=== PATIENT | male | born 1945 | race Asian ===

== ENCOUNTER 2017-01-06 09:37 | Inpatient (IN) | payer OTHER ==
[2017-01-06] MEDS ORDERED: HYDROmorphone 1 MG/ML 1 ML SYRINGE IVP STA (09:52)
[2017-01-06] MEDS ORDERED: SODIUM CHLORIDE 0.9% 1,000 ML IV STA (09:52)
[2017-01-06 10:31] LABS: Basophils # (A) 0.1 k/uL (0-0.2); Basophils % (A) 0 %; CH 29.8; CHCM 34.9; Eosinophils # (A) 0.1 k/uL (0-0.7); Eosinophils % (A) 0 %; HCT 47.5 % (39.0-53.0); HDW 3.06; HGB 16.1 gm/dL (13.0-17.5); Luc # (Auto) 0.06; Luc % (Auto) 0; Lymphocytes % (A) 8 %; MCH 29.1 pg (25.0-35.0); MCHC 33.9 g/dL (31.0-37.0); MCV 85.9 fL (80.0-100.0); Monocytes # (A) 0.6 k/uL (0-1.0); Monocytes % (A) 5 %; Neutrophils # (A) 10.9 k/uL (1.3-7.7); Neutrophils % (A) 87 %; RBC 5.53 m/uL (4.30-5.90); RDW 12.8 % (11.5-15.5); WBC 12.6 k/uL (3.8-10.6); WBC (Perox) 12.66
[2017-01-06 10:39] LABS: INR 1.2 (<1.1); Partial Thromboplastin Time 23.1 sec (22.0-30.0); Prothrombin Time 11.7 sec (9.0-12.0)
[2017-01-06 10:50] LABS: ALT 33 U/L (21-72); AST 28 U/L (17-59); Alkaline Phosphatase 77 U/L (38-126); Anion Gap 10 mmol/L; Blood Urea Nitrogen 14 mg/dL (9-20); Calcium 9.3 mg/dL (8.4-10.2); Carbon Dioxide 23 mmol/L (22-30); Chloride 104 mmol/L (98-107); Glucose 202 mg/dL (74-99); Magnesium 1.9 mg/dL (1.6-2.3); Non-African American GFR(MDRD) 54 (>60 ml/min/1.73 sqM); Potassium 4.4 mmol/L (3.5-5.1); Sodium 137 mmol/L (137-145); Total Bilirubin 0.9 mg/dL (0.2-1.3); Total Protein 7.7 g/dL (6.3-8.2)
[2017-01-06 11:01] LABS: Creatine Kinase 250 U/L (55-170)
--- NOTE | 2017-01-06 11:04 | XR ---
EXAMINATION TYPE: XR Hip Bilateral and AP pelvis DATE OF EXAM: 01/06/2017 10:54 AM COMPARISON: NONE HISTORY: Fall injury with pelvic and left hip pain. TECHNIQUE: A single AP view of the pelvis is obtained. Two views of the left hip are obtained. FINDINGS: There is acute subcapital fracture through the left proximal femur with slight impaction a nd superior displacement of distal fracture fragment. Moderate axial joint space loss in both hip amber nts is present. No hip joint dislocation is seen. No right hip fracture or dislocation is evident. Remainder of pelvis shows no additional acute fracture or dislocation. Sacroiliac joints are maintain ed. Overlying soft tissue is unremarkable. IMPRESSION: There is acute slightly displaced subcapital fracture of left proximal femur.
--- NOTE | 2017-01-06 11:05 | XR ---
EXAMINATION TYPE: XR hand complete LT DATE OF EXAM: 01/06/2017 10:53 AM CLINICAL HISTORY: Left hand pain after fall injury TECHNIQUE: Frontal, lateral and oblique images of the left hand are obtained. COMPARISON: None. FINDINGS: Osseous structures are somewhat demineralized. There is no acute fracture/dislocation evide nt in the left hand. Mild spurring first interphalangeal joint is noted. There is more prominent join t space loss with marginal spurring and joint space sclerosis at base of first metacarpal. Peripheral IV overlies the dorsum of the left wrist. IMPRESSION: There is no acute fracture or dislocation in the left hand.
--- NOTE | 2017-01-06 11:07 | XR ---
EXAMINATION TYPE: XR chest 1V DATE OF EXAM: 01/06/2017 10:54 AM COMPARISON: NONE HISTORY: Chest pain after fall injury. TECHNIQUE: Single frontal supine view of the chest is obtained. FINDINGS: Exam is suboptimal as there is rotation to the right. Cardiac silhouette size is mildly pro minent with ectatic thoracic aorta may be exaggerated by rotation. Some increased masslike opacity ri ght upper lung is present. No pleural effusion or pneumothorax is seen. Osseous structures are intact . IMPRESSION: Suboptimal study, there is mild cardiomegaly with right upper lung masslike opacity cou ld reflect infiltrate and/or atelectasis, follow-up with two-view chest x-ray or CT correlation shoul d be considered as underlying mass needs to BE excluded.
[2017-01-06 11:13] LABS: Troponin I <0.012 ng/mL (0.000-0.034)
[2017-01-06 11:25] LABS: Creatine Kinase MB 2.5 ng/mL (0.0-2.4)
[2017-01-06] MEDS ORDERED: SODIUM CHLORIDE 0.9% 1,000 ML IV ONE (12:14)
--- NOTE | 2017-01-06 12:14 | ED ---
Fall HPI - General Chief Complaint: Fall Stated Complaint: fall, hip injury Time Seen by Provider: 01/06/17 09:42 Source: patient Mode of arrival: EMS - History of Present Illness Initial Comments: He fell today at 7:30 AM and had his left hip no complaining about pain with movement he denies any head injury no neck injury he also injured his left hand while trying to break the fall and he is able to move his left foot. He denies any medical history hasn't seen a physician for quite a long time he denies any head injury no neck injury no chest pain or shortness of breath no abdominal pain no frequency urgency dysuria - Related Data Home Medications Medication Instructions Recorded Confirmed No Known Home Medications [No 01/06/17 01/06/17 Known Home Medications] Allergies Allergy/AdvReac Type Severity Reaction Status Date / Time No Known Allergies Allergy Verified 01/06/17 10:17 Review of Systems ROS Statement: Those systems with pertinent positive or pertinent negative responses have been documented in the HPI. ROS Other: All systems not noted in ROS Statement are negative. Past Medical History Past Medical History: No Reported History History of Any Multi-Drug Resistant Organisms: None Reported Past Surgical History: No Surgical Hx Reported Past Psychological History: No Psychological Hx Reported Smoking Status: Never smoker Past Alcohol Use History: None Reported Past Drug Use History: None Reported General Exam - General Exam Comments Initial Comments: General: The patient is awake and alert, in no distress, and does not appear acutely ill. Skin: Skin is warm and dry and no rashes or lesions are noted. Eye: Pupils are equal, round and reactive to light, extra-ocular movements are intact; there is normal conjunctiva bilaterally. Ears, nose, mouth and throat: There are moist mucous membranes and no oral lesions. Neck: The neck is supple, there is no tenderness or JVD. Cardiovascular: There is a regular rate and rhythm. No murmur, rub or gallop is appreciated. Respiratory: To auscultation bilateral, crease breath sounds bilaterally Gastrointestinal: Soft, non-distended, non-tender abdomen without masses or organomegaly noted. There is no rebound or guarding present. Bowel sounds are unremarkable. Back: There is no tenderness to palpation in the midline. There is no obvious deformity. Musculoskeletal: Left lower extremity is externally rotated left lower extremities which short her but no neurovascular compromise noticed a cyst point Neurological: CN II-XII intact, Cranial nerves III through XII are intact. There are no obvious motor or sensory deficits. Coordination appears grossly intact. Speech is normal. Psychiatric: Cooperative, appropriate mood & affect, normal judgment. Limitations: no limitations Course Vital Signs 01/06/17 01/06/17 09:57 11:24 Temperature 97.4 F L Pulse Rate 84 74 Respiratory 18 16 Rate Blood Pressure 212/108 163/84 O2 Sat by Pulse 95 94 L Oximetry EKG shows normal sinus rhythm ventricular rate is 68 MA interval is 140 QRS duration is 1 of 4 QT/QTc is 392/416 review of this EKG shows mild ST depression in lead 2 and some flattening of the T-wave in lead aVF and V5 and V6 no ST elevation noticed in this EKG Medical Decision Making - Lab Data Result diagrams: 01/06/17 10:10 01/06/17 10:10 Lab Results 01/06/17 01/06/17 01/06/17 Range/Units 10:10 10:10 10:10 WBC 12.6 H (3.8-10.6) k/uL RBC 5.53 (4.30-5.90) m/uL Hgb 16.1 (13.0-17.5) gm/dL Hct 47.5 (39.0-53.0) % MCV 85.9 (80.0-100.0) fL MCH 29.1 (25.0-35.0) pg MCHC 33.9 (31.0-37.0) g/dL RDW 12.8 (11.5-15.5) % Plt Count 189 (150-450) k/uL Neutrophils % 87 % Lymphocytes % 8 % Monocytes % 5 % Eosinophils % 0 % Basophils % 0 % Neutrophils # 10.9 H (1.3-7.7) k/uL Lymphocytes # 1.0 (1.0-4.8) k/uL Monocytes # 0.6 (0-1.0) k/uL Eosinophils # 0.1 (0-0.7) k/uL Basophils # 0.1 (0-0.2) k/uL PT (9.0-12.0) sec INR (<1.1) APTT (22.0-30.0) sec Sodium 137 (137-145) mmol/L Potassium 4.4 (3.5-5.1) mmol/L Chloride 104 (98-107) mmol/L Carbon Dioxide 23 (22-30) mmol/L Anion Gap 10 mmol/L BUN 14 (9-20) mg/dL Creatinine 1.31 H (0.66-1.25) mg/dL Est GFR (MDRD) Af Amer >60 (>60 ml/min/1.73 sqM) Est GFR (MDRD) Non-Af 54 (>60 ml/min/1.73 sqM) Glucose 202 H (74-99) mg/dL Calcium 9.3 (8.4-10.2) mg/dL Magnesium 1.9 (1.6-2.3) mg/dL Total Bilirubin 0.9 (0.2-1.3) mg/dL AST 28 (17-59) U/L ALT 33 (21-72) U/L Alkaline Phosphatase 77 (38-126) U/L Total Creatine Kinase 250 H (55-170) U/L CK-MB (CK-2) 2.5 H* (0.0-2.4) ng/mL CK-MB (CK-2) Rel Index 1.0 Troponin I <0.012 (0.000-0.034) ng/mL Total Protein 7.7 (6.3-8.2) g/dL Albumin 4.2 (3.5-5.0) g/dL 01/06/17 Range/Units 10:10 WBC (3.8-10.6) k/uL RBC (4.30-5.90) m/uL Hgb (13.0-17.5) gm/dL Hct (39.0-53.0) % MCV (80.0-100.0) fL MCH (25.0-35.0) pg MCHC (31.0-37.0) g/dL RDW (11.5-15.5) % Plt Count (150-450) k/uL Neutrophils % % Lymphocytes % % Monocytes % % Eosinophils % % Basophils % % Neutrophils # (1.3-7.7) k/uL Lymphocytes # (1.0-4.8) k/uL Monocytes # (0-1.0) k/uL Eosinophils # (0-0.7) k/uL Basophils # (0-0.2) k/uL PT 11.7 (9.0-12.0) sec INR 1.2 (<1.1) APTT 23.1 (22.0-30.0) sec Sodium (137-145) mmol/L Potassium (3.5-5.1) mmol/L Chloride (98-107) mmol/L Carbon Dioxide (22-30) mmol/L Anion Gap mmol/L BUN (9-20) mg/dL Creatinine (0.66-1.25) mg/dL Est GFR (MDRD) Af Amer (>60 ml/min/1.73 sqM) Est GFR (MDRD) Non-Af (>60 ml/min/1.73 sqM) Glucose (74-99) mg/dL Calcium (8.4-10.2) mg/dL Magnesium (1.6-2.3) mg/dL Total Bilirubin (0.2-1.3) mg/dL AST (17-59) U/L ALT (21-72) U/L Alkaline Phosphatase (38-126) U/L Total Creatine Kinase (55-170) U/L CK-MB (CK-2) (0.0-2.4) ng/mL CK-MB (CK-2) Rel Index Troponin I (0.000-0.034) ng/mL Total Protein (6.3-8.2) g/dL Albumin (3.5-5.0) g/dL Critical Care Time Total Critical Care Time: 35 Critical Care Time: An EKG in his blood pressure was quite a visor to 12 systolic though he does not have any diagnosis of hypertension I think is undiagnosed hypertension though the pain medication did the check for now he didn't require any antihypertensive therapy since he hasn't seen any physician for long time complete workup was done his white count is slightly elevated INR is fine creatinine is 1.31 glucose is 22 consistent with a glucose intolerance troponin is negative and x-ray was negative and chest x-ray which is lung mass infiltrate or atelectasis Disposition Clinical Impression: Hypertension, Closed left hip fracture, Lung mass Disposition: ADMITTED IP TO THIS HOSP
[2017-01-06] MEDS: HYDROmorphone 1 MG/ML 1 ML SYRINGE IVP PRN ×5 (12:56→20:45)
--- NOTE | 2017-01-06 18:09 | P.CNOR ---
History of Present Illness - [facility] Consult date: 01/06/17 Consult reason: fracture History of present illness: The patient is a very pleasant 71-year-old male who is admitted to internal medicine with a displaced left femoral neck fracture. The patient reports no medical problems but states that he has never seen a doctor in his life. He is very active and states that he walks 2-3 miles a day. 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 This morning he was walking when he lost his balance and fell on the left side. He denies any pre-existing hip pain. He was brought to the emergency department where x-rays showed a displaced femoral neck fracture. Due to his lack of prior medical care, hypertension and the ER, and lab work he was admitted to internal medicine. Orthopedics has been consult did for hip fracture. At the time of my evaluation he is complaining of isolated pain in his left hip. He denies any pre-existing hip pain. At his baseline he denies using assistive device to ambulate and says he walks 2-3 miles a day. He denies smoking but does chew tobacco. Past Medical History Past Medical History: No Reported History History of Any Multi-Drug Resistant Organisms: None Reported Past Surgical History: No Surgical Hx Reported Additional Past Anesthesia/Blood Transfusion Reaction / Comm: Pt has never had anesthesia Past Psychological History: No Psychological Hx Reported Additional Psychological History / Comment(s): Pt resides alone. He has a spouse of 48 yrs. She comes and visits him regularly. He does not drive. He uses the bus to get places and family makes sure he has what he needs. Pt is a vegetarian. He walks 3-4 miles a day and does yoga on a daily basis. Smoking Status: Never smoker Past Alcohol Use History: None Reported Additional Past Alcohol Use History / Comment(s): Pt chews tobacco. He has chewed since 1966. Past Drug Use History: None Reported - Past Family History Mother Family Medical History: No Reported History Additional Family Medical History / Comment(s): Mother lived to be 96yrs old Father Family Medical History: No Reported History Additional Family Medical History / Comment(s): Father lived to be in his late 70's. Medications and Allergies Home Medications Medication Instructions Recorded Confirmed Type No Known Home Medications [No 01/06/17 01/06/17 History Known Home Medications] Allergies Allergy/AdvReac Type Severity Reaction Status Date / Time No Known Allergies Allergy Verified 01/06/17 10:17 Physical Examination On exam the patient is in no apparent distress and is alert and oriented. His head is normocephalic and atraumatic. He has no cervical tenderness. He demonstrates nonlabored breathing with symmetric chest expansion. His abdomen is nonobese. He has no obvious deformities in his upper extremities. His upper extremities are nontender to palpation. On examination of his lower extremities his left leg is shortened and externally rotated. He has no tenderness throughout his right leg. He has pain with any attempted motion of his left hip. His thigh and calf are soft. He has no tenderness over his knee or ankle. He has a palpable dorsalis pedis pulse. His left foot is warm and well perfused with brisk capillary refill. Sensation is intact to light touch throughout his left foot. He can actively plantarflex and dorsiflex his ankle and his toes. Results X-rays of the left hip show displaced femoral neck fracture - Labs Result Diagrams: 01/06/17 10:10 01/06/17 10:10 Assessment and Plan (1) Closed left hip fracture Status: Acute Plan: Patient has a displaced left femoral neck fracture which will require surgery with either hemiarthroplasty or total hip replacement. We'll plan on surgery tomorrow once he is cleared by internal medicine. In the interim he is to remain on bedrest with strict nonweightbearing of his left lower extremity.
[2017-01-06 18:30] LABS: Amorphous Sediment,Urine Rare /hpf; Appearance,Urine Clear (Clear); Bilirubin,Urine Negative (Negative); Glucose,Urine (UA) 4+ (Negative); Ketones,Urine Trace (Negative); Leukocyte Esterase,Urine Negative (Negative); Mucus,Urine Rare /hpf; Nitrite,Urine Negative (Negative); Particle Count 618; Protein,Urine Trace (Negative); RBC,Urine 1 /hpf (0-5); UA Billing (MACRO vs. MICRO) MICRO; Urobilinogen,Urine <2.0 mg/dL (<2.0); WBC,Urine 4 /hpf (0-5)
[2017-01-06 19:40] LABS: Hemoglobin A1C 7.9 % (4.2-6.1)
[2017-01-06] MEDS: METOPROLOL TARTRATE 25 MG TAB PO SCH (19:56)
--- NOTE | 2017-01-06 19:58 | XR ---
EXAMINATION TYPE: XR chest 1V DATE OF EXAM: 01/06/2017 7:14 PM COMPARISON: January 16, 2017 at 10:41 AM HISTORY: Possible right upper lung mass TECHNIQUE: Single supine frontal view of the chest is obtained. FINDINGS: There is no focal air space opacity, pleural effusion, or pneumothorax seen. The cardiac silhouette size is within normal limits. The osseous structures are intact. IMPRESSION: No definite acute process, single supine radiographic examination.
[2017-01-06 19:59] LABS: Anion Gap 13 mmol/L; Blood Urea Nitrogen 15 mg/dL (9-20); Calcium 9.2 mg/dL (8.4-10.2); Carbon Dioxide 25 mmol/L (22-30); Chloride 100 mmol/L (98-107); Glucose 201 mg/dL (74-99); Non-African American GFR(MDRD) 50 (>60 ml/min/1.73 sqM); Potassium 4.8 mmol/L (3.5-5.1); Sodium 138 mmol/L (137-145)
--- NOTE | 2017-01-06 21:52 | XR ---
EXAMINATION TYPE: XR femur LT DATE OF EXAM: 01/06/2017 9:06 PM COMPARISON: January 06, 2017 10:30AM HISTORY: Left subcapital fracture, assess left femur TECHNIQUE: 5 views, including crosstable lateral technique FINDINGS: Imaging was obtained from the hip to the knee. The left subcapital fracture is redemonstrat ed without interval change. The remainder of the femur is intact. No incidental findings. IMPRESSION: Left femur examination.
[2017-01-07] MEDS: ENALAPRILAT 1.25 MG/ML 1 ML VIAL IVP PRN ×2 (01:03→04:54)
[2017-01-07] MEDS: HYDROmorphone 1 MG/ML 1 ML SYRINGE IVP PRN ×4 (02:31→19:48)
[2017-01-07 07:32] LABS: ALT 31 U/L (21-72); AST 27 U/L (17-59); Alkaline Phosphatase 69 U/L (38-126); Anion Gap 10 mmol/L; Blood Urea Nitrogen 17 mg/dL (9-20); Calcium 9.1 mg/dL (8.4-10.2); Carbon Dioxide 27 mmol/L (22-30); Chloride 101 mmol/L (98-107); Glucose 198 mg/dL (74-99); Non-African American GFR(MDRD) 52 (>60 ml/min/1.73 sqM); Potassium 4.9 mmol/L (3.5-5.1); Sodium 138 mmol/L (137-145); Total Bilirubin 1.5 mg/dL (0.2-1.3); Total Protein 7.3 g/dL (6.3-8.2)
[2017-01-07 08:11] LABS: Basophils % (A) 0 %; CH 29.6; CHCM 33.5; Eosinophils # (A) 0.2 k/uL (0-0.7); Eosinophils % (A) 1 %; HCT 47.2 % (39.0-53.0); HDW 2.54; HGB 15.5 gm/dL (13.0-17.5); Luc # (Auto) 0.09; Luc % (Auto) 1; Lymphocytes # (A) 1.4 k/uL (1.0-4.8); Lymphocytes % (A) 12 %; MCH 29.1 pg (25.0-35.0); MCHC 32.8 g/dL (31.0-37.0); MCV 88.8 fL (80.0-100.0); Mean Platelet Volume 7.7; Monocytes # (A) 0.7 k/uL (0-1.0); Monocytes % (A) 6 %; Neutrophils # (A) 9.7 k/uL (1.3-7.7); Neutrophils % (A) 80 %; RBC 5.31 m/uL (4.30-5.90); RDW 12.8 % (11.5-15.5); WBC 12.1 k/uL (3.8-10.6); WBC (Perox) 12.15
--- NOTE | 2017-01-07 08:21 | HP ---
DATE OF ADMISSION: 01/06/2017 SUBJECTIVE: This 71-year-old [place]orean male who presented with a left hip fracture. HISTORY OF PRESENT ILLNESS: This is a 71-year-old male with a left hip fracture admitted medical care and hip surgery. He does not take any medicines at home. He was found to have hypertension accelerations since he has been in the hospital and has renal insufficiency. He has not been treated for any of this in the past. He is having no chest pain or shortness of breath. His allergies are negative. REVIEW OF SYSTEMS: Negative except for as mentioned in the HPI. Fourteen point review of systems negative. PAST MEDICAL HISTORY: Negative. SURGERIES: Negative. SMOKING: Negative. He chews tobacco for many, many years, but no smoking. No alcohol. No illicit drugs. 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 PHYSICAL EXAM: He is a thin, cachectic [place] man. PSYCH: Giving appropriate answers. NEUROLOGIC: Alert and oriented x3. CARDIOVASCULAR: Regular rate and rhythm. LUNGS: Are clear. GI: Soft. HEMATOLOGIC: Negative Homans. PSYCHIATRIC: Fair mood and affect. NEUROLOGIC: Alert and oriented x3. Temperature 97.4, pulse 74 to 84, respirations 16 to 18, blood pressure 212/108 in the ER 163/84, O2 of 94% to 95% on room air. White count is 12.6. BUN 14, creatinine 1.31. Sodium 137, potassium 4.4. Negative troponin. Elevated creatine kinase secondary to mild rhabdomyolysis. EKG was reviewed. Chest x-ray did show a mass in the right upper lobe for which a second chest x-ray will be ordered and possibly a CAT scan if his creatinine comes down with IV hydration. He should be cleared for surgery ( ) as he needs his hip fixed. Hypertension acceleration will be treated with a beta stephy. Probable lung cancer or unclear etiology. Left hip fracture. Please see further orders.
[2017-01-07] MEDS: METOPROLOL TARTRATE 25 MG TAB PO SCH ×2 (10:29→19:54)
[2017-01-07] MEDS ORDERED: IV FLUID CONTINUATION 700 ML IV ONE (11:26)
[2017-01-07] MEDS ORDERED: ceFAZolin 2 GM in SODIUM CHLORIDE 0.9% 100 ML IVPB ONE (12:21)
[2017-01-07] MEDS ORDERED: ePHEDrine 50 MG/ML 1 ML AMP ONE (12:42)
[2017-01-07] MEDS ORDERED: fentaNYL (PF) 50 MCG/ML 2 ML AMP ONE (12:42)
[2017-01-07] MEDS ORDERED: KETAMINE 10 MG/ML 20 ML VIAL ONE (12:42)
[2017-01-07] MEDS ORDERED: ceFAZolin 3,000 MG in SODIUM CHLORIDE 0.9% IRRIGATIO 3,000 ML IRRIGATION ONE (12:42)
[2017-01-07] MEDS ORDERED: MIDAZOLAM 2 MG/2 ML VIAL ONE (12:42)
[2017-01-07] MEDS ORDERED: LACTATED RINGERS 1,000 ML IV ONE (14:27)
[2017-01-07] MEDS ORDERED: NALOXONE 0.4 MG/ML 1 ML VIAL IV PRN (14:39)
[2017-01-07] MEDS ORDERED: MAGNESIUM HYDROXIDE 2,400 MG/10 ML CUP PO PRN (14:39)
[2017-01-07] MEDS ORDERED: ONDANSETRON 4 MG/2 ML VIAL IVP PRN (14:39)
[2017-01-07] MEDS ORDERED: ACETAMINOPHEN TAB 325 MG TAB PO PRN (14:39)
[2017-01-07] MEDS ORDERED: HYDROmorphone 1 MG/ML 1 ML SYRINGE IVP PRN ×2 (14:39)
[2017-01-07] MEDS ORDERED: TEMAZEPAM 15 MG CAP PO PRN (14:39)
[2017-01-07] MEDS ORDERED: hydrOXYzine PAMOATE 25 MG CAP PO PRN (14:39)
[2017-01-07] MEDS ORDERED: HYDROcodone/APAP 5-325MG 1 EACH TAB PO PRN (14:39)
--- NOTE | 2017-01-07 14:51 | P.OP ---
Date of Procedure: 01/07/17 Preoperative Diagnosis: Left Displaced femoral neck fracture Postoperative Diagnosis: left displaced femoral neck fracture Procedure(s) Performed: Left Hip hemiarthroplasty Implants: Johnathan size 12 fully coated femoral stem, size 45 head Anesthesia: spinal Surgeon: Raji Stauffer Manager Android #1: Jordyn Geiger Estimated Blood Loss (ml): 200 IV fluids (ml): 600 Urine output (ml): 250 Pathology: other (Femoral Head sent to pathology) Condition: stable Disposition: PACU Indications for Procedure: The patient is a 71-year-old male who sustained a ground-level fall yesterday while walking. He was brought to the emergency department where x-rays showed a displaced femoral neck fracture. The patient has never seen a doctor and had hypertension with systolic blood pressures in the 220s as well as renal insufficiency with a creatinine of 1.4 and was admitted to internal medicine. Orthopedics was consult that for left hip fracture. I met with the patient preoperatively and discussed treatment. I also discussed the case with my total joints partner Dr. Spike Maldonado in regards to performing a total hip replacement versus hemiarthroplasty. Due to the patient's medical issues including a lung mass as well as no pre-existing hip pain I decided to perform a hip hemiarthroplasty. I discussed the potential risks and complications of surgery including but not limited to risks from anesthesia, risk of superficial infection, risk of deep infection, risk of intraoperative fracture, risk of damage to local blood vessels or nerves, risk of postoperative periprosthetic fracture, risk of hip dislocation, risk of leg length inequality, risk of leg or thigh pain, risk of hip pain, risk of progression of arthritis requiring conversion to a total hip replacement, risk generalized to satisfaction with surgery, inability to ambulate, and possibly postoperative medical problems including DVT, PE, pneumonia, urinary tract infection, pressure sore, acute coronary event, stroke and even possibly . The patient understands these potential complications and provided his verbal and written consent to go forward with a press-fit hemiarthroplasty. Operative Findings: The patient had a displaced subcapital femoral neck fracture. Description of Procedure: The patient was identified in preoperative holding and the correct left lower extremity was marked with my initials. Reviewed the consent form with the patient, his , and son-in-law. All of their questions were answered. The patient was then brought back to the operating room. A spinal anesthetic was administered while he was still on his gurney. A Blanco catheter was placed. The patient was uncircumcised and well placing a Blanco there was a small skin tear and his foreskin. Urology came in to see the patient and recommended placing antibiotic ointment. The patient was then positioned in the lateral decubitus position with the right side down and his left hip up. He was secured to the operating table to Montral frame. The patient's left leg was then prepped and draped in the standard sterile fashion. Preoperative antibiotics were administered. A timeout was then performed identifying the correct patient, operative extremity, and procedure. A standard posterior lateral incision was marked out over the lateral aspect of the hip with a 10 cm vertical limb over the posterior half of the proximal femur and was angled 45 posteriorly at the tip of the greater trochanter. Skin incision was made with a 10 blade scalpel and dissection was carried down carefully to the subcutaneous tissues electrocautery. The IT band was then incised longitudinally in line with the skin incision over the posterior half of the femur. Proximally the fibers of the gluteus иван were bluntly dissected. A Charnley retractor was placed. The trochanteric bursa was elevated off the posterior femur. The leading edge of the piriformis tendon was identified and a medium Yepez elevator was used to develop the interval between the short external rotators and hip capsule. The posterior hip capsule was then identified and teed. Immediately upon entering the posterior hip capsule there was a mcclain of blood from his hip fracture. On inspection there is a completely displaced subcapital femoral neck fracture. A corkscrew was used to remove the femoral head from the acetabulum which was then sent to the back table, sized and sent to pathology. A saw was then used to create a femoral neck cut 1 fingerbreadth above the lesser trochanter Retractors were placed and entrance to the proximal femur was gained with a box osteotome followed by a canal finder. We then reamed in 1 mm increments up to a size 12 mm reamer which generated chatter. I then sequentially broached in 1 mm increments until a 12 mm broach felt stable. A calcar planar was used to bring down the femoral neck cut flush with the broach. We then trialed with a standard offset 45 mm head which appeared stable in all planes of motion. The hip was then gently dislocated and irrigated. A size 12 femoral stem was dispensed. The proximal femur was irrigated and then the 12 mm stem was gently tapped into place until it was fully seated. The Godoy taper was cleaned and the final head implant was placed. The hip was then gently reduced and brought through range of motion area and felt stable in all planes of motion. The wound was again copiously irrigated. The posterior capsule was closed with interrupted 0 Vicryl sutures. The wound was again irrigated. The IT band was closed with a running Quill stitch. The subcu was closed with interrupted 2-0 Vicryl. The skin was closed with a running Monocryl stitch. A sterile dressing consisting of Dermabond tape. Once the wound was sealed the drapes were taken down and a dressing consisting of an ABDs and paper tape was applied. The patient was then carefully transferred from the operating room table to the [facility] and brought to PACU having tolerated the procedure well. At the end of surgery all instrument sponge and sharp counts were correct. Jordyn Geiger PA-C was required for positioning, approach, implantation of hip prosthesis, and closure. Plan: Weightbearing as tolerated left leg with posterior hip precautions. Hip abduction pillow while in place. DVT prophylaxis with Lovenox 40 mg daily 4 weeks. When necessary dressing changes per protocol. Bone health with calcium carbonate 500 mg 3 times a day and vitamin D3 2000 units daily. We'll check 25- hydroxy vitamin D level.
--- NOTE | 2017-01-07 15:09 | XR ---
EXAMINATION TYPE: XR Hip Limited LT DATE OF EXAM: 01/07/2017 3:00 PM COMPARISON: NONE HISTORY: Postop left hip replacement TECHNIQUE: Single AP left hip FINDINGS: Femoral prosthesis is been placed. No acute fractures are evident. Postsurgical changes are within the soft tissues. IMPRESSION: 1. No acute fractures post left hip replacement.
--- NOTE | 2017-01-07 17:37 | P.PN ---
Subjective Patient is doing well. No complaints. Pain controlled. Denies CP/SOB. Objective - Vital Signs Vital signs: Vital Signs Temp 98 F 01/07/17 14:35 Pulse 61 01/07/17 15:15 Resp 18 01/07/17 15:15 BP 135/64 01/07/17 15:15 Pulse Ox 99 01/07/17 15:15 Intake & Output 01/06/17 01/07/17 01/07/17 18:59 06:59 18:59 Intake Total 901 Output Total 200 475 Balance -200 426 Intake: IV 901 Output: Urine 200 275 Estimated Blood Loss 200 Other: Voiding Method Urinal Urinal # Voids 1 - Exam Patient is resting comfortably in bed. Hip abduction pillow was in place. Dressing over the left hip is clean and dry. Thigh and calf are soft. He is able to actively plantarflex and dorsiflex his left ankle and toes. Sensation is intact to light touch in his left foot. - Labs CBC & Chem 7: 01/07/17 06:33 01/07/17 06:33 Labs: Abnormal Lab Results - Last 24 Hours (Table) 01/06/17 01/06/17 01/07/17 Range/Units 18:15 19:37 06:33 WBC 12.1 H (3.8-10.6) k/uL Neutrophils # 9.7 H (1.3-7.7) k/uL Creatinine 1.41 H (0.66-1.25) mg/dL Glucose 201 H (74-99) mg/dL Total Bilirubin (0.2-1.3) mg/dL Urine Protein Trace H (Negative) Urine Glucose (UA) 4+ H (Negative) Urine Ketones Trace H (Negative) Urine Blood Trace H (Negative) Amorphous Sediment Rare H (None) /hpf Urine Mucus Rare H (None) /hpf 01/07/17 Range/Units 06:33 WBC (3.8-10.6) k/uL Neutrophils # (1.3-7.7) k/uL Creatinine 1.35 H (0.66-1.25) mg/dL Glucose 198 H (74-99) mg/dL Total Bilirubin 1.5 H (0.2-1.3) mg/dL Urine Protein (Negative) Urine Glucose (UA) (Negative) Urine Ketones (Negative) Urine Blood (Negative) Amorphous Sediment (None) /hpf Urine Mucus (None) /hpf Microbiology - Last 24 Hours (Table) 01/06/17 18:15 Urine Culture - Preliminary Urine,Voided Assessment and Plan (1) Closed left hip fracture Status: Acute Plan: Postoperative day #0 status post left hip hemiarthroplasty 1. Weightbearing as tolerated left leg, posterior hip precautions 6 weeks 2. Postoperative antibiotics 24 hours 3. DVT prophylaxis with Lovenox 40 mg subcu 4 weeks 4. Bone health calcium carbonate 500 mg 3 times a day, vitamin D3 2000 units daily, 25-hydroxy vitamin D level pending 5. Appreciate internal medicine perioperative management 6. Dressing changes per protocol 7. Dispo planning
[2017-01-07] MEDS: ceFAZolin 2 GM in SODIUM CHLORIDE 0.9% 100 ML IVPB SCH ×2 (17:51→23:13)
[2017-01-07] MEDS: LACTATED RINGERS 1,000 ML IV SCH (19:48)
[2017-01-07] MEDS: SENNOSIDES-DOCUSATE SODIUM 1 EACH TAB PO SCH (19:54)
[2017-01-07] MEDS: BACITRACIN 500 UNIT/GM OINT 28.4 GM TUBE TOPICAL SCH (20:57)
[2017-01-07] MEDS: CALCIUM CARBONATE 500 MG CHEWABLE PO SCH (23:13)
[2017-01-08] MEDS: LACTATED RINGERS 1,000 ML IV SCH ×3 (02:37→21:25)
[2017-01-08] MEDS: HYDROmorphone 1 MG/ML 1 ML SYRINGE IVP PRN ×2 (02:37→08:33)
[2017-01-08 07:17] LABS: Basophils % (A) 0 %; CH 29.8; Eosinophils # (A) 0.1 k/uL (0-0.7); Eosinophils % (A) 1 %; HCT 40.3 % (39.0-53.0); HDW 2.56; HGB 13.1 gm/dL (13.0-17.5); Luc # (Auto) 0.17; Luc % (Auto) 2; Lymphocytes # (A) 1.7 k/uL (1.0-4.8); Lymphocytes % (A) 15 %; MCH 28.6 pg (25.0-35.0); MCHC 32.6 g/dL (31.0-37.0); Mean Platelet Volume 7.5; Monocytes # (A) 0.7 k/uL (0-1.0); Monocytes % (A) 6 %; Neutrophils # (A) 8.6 k/uL (1.3-7.7); Neutrophils % (A) 76 %; RBC 4.57 m/uL (4.30-5.90); RDW 12.7 % (11.5-15.5); WBC 11.3 k/uL (3.8-10.6); WBC (Perox) 12.25
[2017-01-08] MEDS: ENOXAPARIN 40 MG/0.4 ML SYRINGE SQ SCH (08:34)
[2017-01-08] MEDS: BACITRACIN 500 UNIT/GM OINT 28.4 GM TUBE TOPICAL SCH ×2 (08:34→22:30)
[2017-01-08] MEDS: CALCIUM CARBONATE 500 MG CHEWABLE PO SCH ×3 (08:34→22:29)
[2017-01-08] MEDS: MULTIVITAMINS, THERA 1 EACH TAB PO SCH (08:35)
[2017-01-08] MEDS: CHOLECALCIFEROL 1,000 UNIT TAB PO SCH (08:35)
[2017-01-08] MEDS: METOPROLOL TARTRATE 25 MG TAB PO SCH (08:35)
--- NOTE | 2017-01-08 08:43 | P.PN ---
Subjective Principal diagnosis: Status post left hemiarthroplasty This is a pleasant 71-year-old gentleman who is status post left hip hemiarthroplasty fracture. Today's postoperative day #1. The patient is seen and evaluated at bedside. He states that his pain is well-controlled. He states that he was up ambulating to the restroom. No other complaints at this time. Objective - Vital Signs Vital signs: Vital Signs Temp 99.2 F 01/08/17 03:06 Pulse 77 01/08/17 08:31 Resp 18 01/08/17 08:31 BP 174/96 01/08/17 08:31 Pulse Ox 94 L 01/08/17 08:31 Intake & Output 01/07/17 01/08/17 01/08/17 18:59 06:59 18:59 Intake Total 901 1100 Output Total 475 1050 Balance 426 50 Intake: IV 901 1100 Lactated Ringers 1,000 ml 1100 @ 100 mls/hr IV .Q10H MELONIE Rx#:[id number] Output: Urine 275 1050 Uretheral (Blanco) 1050 Estimated Blood Loss 200 Other: Voiding Method Indwelling Catheter - Exam The patient does not appear in acute distress. Alert and orientated 3. Dressing is clean dry and intact. Calf is soft and nontender. Good foot and ankle motion without difficulty. Sensation and circulatory status is intact. - Labs CBC & Chem 7: 01/08/17 06:49 01/07/17 06:33 Labs: Abnormal Lab Results - Last 24 Hours (Table) 01/08/17 Range/Units 06:49 WBC 11.3 H (3.8-10.6) k/uL Neutrophils # 8.6 H (1.3-7.7) k/uL Microbiology - Last 24 Hours (Table) 01/06/17 18:15 Urine Culture - Final Urine,Voided Assessment and Plan (1) Closed left hip fracture Status: Acute (2) Status post hip hemiarthroplasty Status: Acute Plan: Continue with routine postoperative care. Anticoagulation with Lovenox. Pain control. Appreciate input from medicine. Anticipate transfer to rehab likely on Tuesday depending upon his course.
[2017-01-08] MEDS: HYDROcodone/APAP 5-325MG 1 EACH TAB PO PRN ×3 (09:26→22:50)
--- NOTE | 2017-01-08 17:28 | CT ---
EXAMINATION TYPE: CT chest wo con DATE OF EXAM: 01/08/2017 5:19 PM COMPARISON: NONE HISTORY: Follow Up chest Xray CT DLP: 293.5 mGycm Automated exposure control for dose reduction was used. FINDINGS: The lungs are clear of consolidation. There is no pleural effusion. There is no pericardial effusion. Heart appears enlarged. There are no hilar masses. There is no mediastinal adenopathy. There is mild aneurysm of the ascending aorta measures 4 cm. The bony thorax is intact. IMPRESSION: CARDIOMEGALY. MILD ANEURYSM OF THE ASCENDING AORTA. NO EVIDENCE OF ACUTE LUNG DISEASE.
--- NOTE | 2017-01-08 19:55 | PN ---
SUBJECTIVE: This 71-year-old [place] man is status post left hip surgery. Discussed physical therapy and possible rehab center versus going home. His hypertension acceleration continues in the 150s to 160s systolic, heart rate is in the 70s. Creatinine is still elevated. There is concern on chest x-ray for a mass on the first x-ray, not discussed on the second x-ray. I will consult Dr. Yuri Schulte for opinion on this abnormal chest x-ray. I cannot do a CT scan due to accelerated creatinine level. Hypertension will be treated with increased metoprolol from 25 mg b.i.d. to 50 b.i.d. CARDIOVASCULAR: S1, S2. LUNGS: Clear. GI: Soft. MUSCULOSKELETAL: Limited motion due to the left hip surgery. ASSESSMENT: 1. Left hip fracture. 2. Hypertension acceleration. 3. Stage III renal insufficiency. 4. Abnormal chest x-ray. Consult Dr. Schulte for chest x-ray. Increase metoprolol to 50 b.i.d. Please see further orders.
--- NOTE | 2017-01-08 20:33 | CONS ---
DATE OF CONSULTATION: 01/08/2017 REASON FOR CONSULTATION: Abnormal x-ray. HISTORY OF PRESENTING ILLNESS: Mr. Harris is a 71-year-old male, seen, evaluated and examined on the third floor. This patient has been admitted to hospital with hip fracture. Patient underwent a chest x-ray at the time of admission on 01/06/2017 which was a suboptimal study. There was a possibility of right upper lobe nodular density seen, which could be infiltrate or atelectasis. The patient underwent hip and pelvis x-ray at the same time, which revealed a slightly displaced subcapital fracture of the left proximal femur. The hand x-ray which was performed no acute fracture of the left hand. Patient presented to the emergency department on 01/06/2017 with left hip pain related to fall. PAST MEDICAL HISTORY: Essentially unremarkable. Does not take any medicines. PAST SURGICAL HISTORY: Unremarkable and noncontributory. FAMILY HISTORY AND SOCIAL HISTORY: Unremarkable and noncontributory. REVIEW OF SYSTEMS: Otherwise unremarkable and noncontributory. The patient denies any smoking, ethanol abuse or substance use. Current medications while in the hospital include Tylenol as needed with hydrocodone 4 times a day. Also on vitamin D3, Vasotec as needed 1.25 every 4 hours, Lovenox 40 mg subcu daily, Dilaudid for pain control, ( ) IV. Patient is also on metoprolol 50 mg p.o. 2 times a day, Zofran as well as Senokot and Restoril. On examination, his most recent vitals include blood pressure is 147/83, respirations 16, pulse 54, temperature is 98, saturation of 95% on room air. HEENT EXAMINATION: Unremarkable. Atraumatic, normocephalic. Sclera and pharynx clear. NECK: Supple without lymphadenopathy, jugular venous distention or carotid bruit. LUNGS: Bilateral good air entry is present without any significant rales, rhonchi, or rub. HEART: Regular rate and rhythm. S1 and S2 audible. ABDOMEN: Soft. No rebound or rigidity. EXTREMITIES: +1 peripheral pulses. Repeat chest x-ray is unremarkable. I have reviewed the hard copies of both x-rays. Repeat x-ray failed to reveal any significant pathology; however, prominent bronchovascular markings are present. Heart size is normal. The first x-ray performed in the emergency department, hard copy also reviewed. Of note, that was an extremely rotated film revealing shadow into the right upper lobe area. Patient has successfully undergone surgery and is doing fairly well in that regard. IMPRESSION: 1. Abnormal x-ray shadow with a shadow on the right upper lobe, likely appeared to be artifact but a prior pneumonia or mass-like process cannot be excluded. 2. Status post fall with left hip fracture. PLAN AND RECOMMENDATIONS: Continue supportive care. Maintain patient on DVT and peptic ulcer disease prophylaxis. Continue current plan. If services are agreeable, we will do a CT scan of the chest to resolve this issue, which can be performed without dye.
[2017-01-08] MEDS: SENNOSIDES-DOCUSATE SODIUM 1 EACH TAB PO SCH (22:29)
[2017-01-08] MEDS: METOPROLOL TARTRATE 50 MG TAB PO SCH (22:29)
[2017-01-09] MEDS: HYDROcodone/APAP 5-325MG 1 EACH TAB PO PRN ×2 (05:01→11:12)
[2017-01-09 07:24] LABS: Basophils % (A) 0 %; CH 29.8; CHCM 33.9; Eosinophils # (A) 0.3 k/uL (0-0.7); Eosinophils % (A) 2 %; HCT 39.8 % (39.0-53.0); HDW 2.57; HGB 13.1 gm/dL (13.0-17.5); Luc # (Auto) 0.21; Luc % (Auto) 2; Lymphocytes # (A) 1.9 k/uL (1.0-4.8); Lymphocytes % (A) 16 %; MCH 29.1 pg (25.0-35.0); MCHC 32.9 g/dL (31.0-37.0); MCV 88.4 fL (80.0-100.0); Mean Platelet Volume 8.2; Monocytes # (A) 0.8 k/uL (0-1.0); Monocytes % (A) 7 %; Neutrophils # (A) 8.2 k/uL (1.3-7.7); Neutrophils % (A) 72 %; WBC 11.3 k/uL (3.8-10.6); WBC (Perox) 12.08
[2017-01-09 07:48] LABS: Potassium 4.9 mmol/L (3.5-5.1); Total Bilirubin 1.2 mg/dL (0.2-1.3); Total Protein 6.2 g/dL (6.3-8.2)
[2017-01-09] MEDS: CHOLECALCIFEROL 1,000 UNIT TAB PO SCH (09:02)
[2017-01-09] MEDS: CALCIUM CARBONATE 500 MG CHEWABLE PO SCH ×3 (09:03→21:13)
[2017-01-09] MEDS: MULTIVITAMINS, THERA 1 EACH TAB PO SCH (09:03)
[2017-01-09] MEDS: METOPROLOL TARTRATE 50 MG TAB PO SCH ×2 (09:03→21:13)
[2017-01-09] MEDS: ENOXAPARIN 40 MG/0.4 ML SYRINGE SQ SCH (09:03)
--- NOTE | 2017-01-09 09:18 | P.PN ---
Subjective Principal diagnosis: Status post left hemiarthroplasty This is a pleasant 71-year-old gentleman who is status post left hip hemiarthroplasty fracture. Today's postoperative day #2. The patient is seen and evaluated at bedside. He states that his pain is well-controlled. He states that he's been up ambulating to the doorway and restroom. He does complain of some itching. He otherwise denies any complaints at this time. Objective - Vital Signs Vital signs: Vital Signs Temp 98.6 F 01/08/17 20:00 Pulse 72 01/08/17 20:00 Resp 18 01/08/17 20:00 BP 144/76 01/08/17 20:00 Pulse Ox 93 L 01/08/17 20:00 Intake & Output 01/08/17 01/09/17 01/09/17 18:59 06:59 18:59 Intake Total 120 0 Output Total 300 Balance 120 -300 Intake: Oral 120 0 Output: Urine 300 Other: # Voids 2 # Bowel Movements 1 - Exam The patient does not appear in acute distress. Alert and orientated 3. Dressing is clean dry and intact. Incision appears well approximated with no erythema or active drainage. Calf is soft and nontender. Good foot and ankle motion without difficulty. Sensation and circulatory status is intact. - Labs CBC & Chem 7: 01/09/17 06:35 01/09/17 06:35 Labs: Abnormal Lab Results - Last 24 Hours (Table) 01/09/17 01/09/17 Range/Units 06:35 06:35 WBC 11.3 H (3.8-10.6) k/uL Neutrophils # 8.2 H (1.3-7.7) k/uL BUN 21 H (9-20) mg/dL Creatinine 1.55 H (0.66-1.25) mg/dL Glucose 166 H (74-99) mg/dL Total Protein 6.2 L (6.3-8.2) g/dL Albumin 3.2 L (3.5-5.0) g/dL Assessment and Plan (1) Closed left hip fracture Status: Acute (2) Status post hip hemiarthroplasty Status: Acute Plan: Continue with routine postoperative care. Anticoagulation with Lovenox. Pain control. Appreciate input from medicine. Anticipate transfer to rehab likely on Tuesday depending upon his course.
--- NOTE | 2017-01-09 12:01 | PN ---
DATE OF SERVICE: 01/09/2017 Mr. Steven Lomeli is a 71-year-old male who is seen, evaluated, examined. Patient came into the hospital with left hip fracture. Artifact on chest x-ray was seen. Will obtain CT scan of the chest without IV dye. No right upper lobe lesions, infiltrate, pneumonia or mass has been identified. Patient has a borderline thoracic aortic aneurysm of 4 cm, which can be monitored as outpatient. From respiratory standpoint patient is doing well, awake, alert, breathing comfortably. No other specific complaints are present. Patient is undergoing adequate therapy for his left hip fracture. His last set of vitals include blood pressure is 147/79, respiratory rate 16, pulse 76, temperature 98, saturation 96%. HEENT: Unremarkable. NECK: Supple. LUNGS: Good air entry bilaterally. HEART: Regular rate and rhythm. ABDOMEN: Soft. NEUROLOGICAL EXAMINATION: Otherwise, awake and alert. IMPRESSION: 1. Abnormal chest x-ray. No mass; however, has been seen. 2. Status post fall with left hip fracture. Patient is doing well. 3. Small thoracic aortic aneurysm, asymptomatic. Would recommend follow-up in outpatient setting. Defer it to expertise of the primary service in that regard. No further work-up is needed at this point in time. PLAN AND RECOMMENDATIONS: As above. Continue supportive care at this point in time. From pulmonary standpoint, the patient is stable for discharge. Follow up on an as needed basis.
[2017-01-09] MEDS ORDERED: ERGOCALCIFEROL 50,000 UNIT CAP PO SCH (12:30)
--- NOTE | 2017-01-09 18:56 | PN ---
DATE OF SERVICE: 01/09/2017 SUBJECTIVE: A 71-year-old male who is seen and evaluated for left hip fracture, abnormal chest x-ray. CAT scan was orders of the chest, did not show any mass. He has a borderline aortic aneurysm. His blood pressure is improved. He has ( ) hemoglobin and checked him out for diabetes and hypertension, is being given for stage III renal insufficiency. CARDIOVASCULAR: S1, S2. LUNGS: Clear. MUSCULOSKELETAL: Some tenderness to palpation of the left hip. He is up ambulating a little bit. ASSESSMENT: 1. Status post hip fracture. 2. Thoracic aortic aneurysm. 3. Hypertension. 4. Acceleration of stage III renal insufficiency. 5. Rule out diabetes mellitus. PLAN: Continue with current treatments for blood pressure. PT, OT. Possible rehab placement tomorrow. Will do a hemoglobin A1c to rule out diabetes.
[2017-01-09] MEDS: BACITRACIN 500 UNIT/GM OINT 28.4 GM TUBE TOPICAL SCH ×2 (21:11→21:12)
[2017-01-09] MEDS: LACTATED RINGERS 1,000 ML IV SCH ×2 (21:11→21:12)
[2017-01-09] MEDS: SENNOSIDES-DOCUSATE SODIUM 1 EACH TAB PO SCH (21:12)
[2017-01-10 01:35] VITALS: RESP 16
[2017-01-10] MEDS: LACTATED RINGERS 1,000 ML IV SCH (04:52)
[2017-01-10 07:14] LABS: Basophils # (A) 0.1 k/uL (0-0.2); Basophils % (A) 0 %; CH 29.9; CHCM 33.9; Eosinophils # (A) 0.3 k/uL (0-0.7); Eosinophils % (A) 2 %; HCT 39.2 % (39.0-53.0); HDW 2.69; HGB 12.8 gm/dL (13.0-17.5); Luc # (Auto) 0.18; Luc % (Auto) 2; Lymphocytes # (A) 1.4 k/uL (1.0-4.8); Lymphocytes % (A) 13 %; MCHC 32.7 g/dL (31.0-37.0); MCV 88.7 fL (80.0-100.0); Mean Platelet Volume 8.9; Monocytes # (A) 0.7 k/uL (0-1.0); Monocytes % (A) 7 %; Neutrophils # (A) 7.9 k/uL (1.3-7.7); Neutrophils % (A) 76 %; RBC 4.42 m/uL (4.30-5.90); RDW 12.8 % (11.5-15.5); WBC 10.4 k/uL (3.8-10.6); WBC (Perox) 10.64
[2017-01-10] MEDS: ENOXAPARIN 40 MG/0.4 ML SYRINGE SQ SCH (09:05)
[2017-01-10] MEDS: METOPROLOL TARTRATE 50 MG TAB PO SCH (09:05)
[2017-01-10] MEDS: CALCIUM CARBONATE 500 MG CHEWABLE PO SCH (09:05)
[2017-01-10] MEDS: HYDROcodone/APAP 5-325MG 1 EACH TAB PO PRN ×2 (09:05→17:44)
[2017-01-10 09:10] VITALS: BP 165/74; PULSE 66; TEMP 99
--- NOTE | 2017-01-10 09:41 | P.PN ---
Subjective Principal diagnosis: Left hip fracture Patient is postop day #3 from repair of left hip fracture per Dr. Stauffer. He has pain at the surgical site as expected but no new complaints. He is denying numbness, tingling or weakness. Review of systems is negative for fever, chills , chest pain, shortness of breath, calf pain, abdominal pain, nausea, vomiting, dizziness, headaches, slurred speech or other. Objective - Vital Signs Vital signs: Vital Signs Temp 99.0 F 01/10/17 08:00 Pulse 66 01/10/17 08:00 Resp 16 01/10/17 08:00 BP 165/74 01/10/17 08:00 Pulse Ox 95 01/10/17 08:00 Intake & Output 01/09/17 01/10/17 01/10/17 18:59 06:59 18:59 Intake Total 590 Output Total 1 700 690 Balance -1 -110 -690 Intake: Oral 590 Output: Urine 1 700 690 Other: # Voids 1 1 # Bowel Movements 1 - Exam Examination of the left hip and lower extremity reveals a benign surgical wound. There is no active bleeding, dehiscence or drainage. Neurovascular status is intact with motor and sensation throughout the left lower extremity. The calf is soft and nontender. 2+ dorsalis pedis pulse and less than 2 second cap refill is present. He's able to dorsiflex and plantarflex the left ankle, foot and toes. - Constitutional General appearance: Present: no acute distress - Psychiatric Psychiatric: Present: A&O x's 3, appropriate affect, intact judgment & insight - Labs CBC & Chem 7: 01/10/17 06:35 01/09/17 06:35 Labs: Abnormal Lab Results - Last 24 Hours (Table) 01/08/17 01/10/17 Range/Units 06:49 06:35 Hgb 12.8 L (13.0-17.5) gm/dL Neutrophils # 7.9 H (1.3-7.7) k/uL Vitamin D 25-Hydroxy 9.7 L (30.0-100.0) ng/mL Assessment and Plan (1) Closed left hip fracture Narrative/Plan: He'll continue with routine postop orthopedic protocol including pain management , wound care, physical therapy, DVT prophylaxis and medical management. He may be transferred to ECF from orthopedic standpoint when okay with internal medicine. Status: Acute Time with Patient: Less than 30
[2017-01-10] MEDS: BACITRACIN 500 UNIT/GM OINT 28.4 GM TUBE TOPICAL SCH (10:48)
[2017-01-10] MEDS: MULTIVITAMINS, THERA 1 EACH TAB PO SCH (11:41)
[2017-01-10] MEDS: CHOLECALCIFEROL 1,000 UNIT TAB PO SCH (11:41)
--- NOTE | 2017-01-10 14:30 | P.DS ---
Providers Date of admission: 01/06/17 12:21 Expected date of discharge: 01/10/17 Attending physician: Jagdish Mendoza Consults: 01/08/17 14:42 Consult Physician Routine Consulting Provider: Yuri Schulte Consult Reason/Comments: abnormal cxr Do you want consulting provider notified?: Yes Primary care physician: Stated None Hospital Course: 71-year-old admitted on the day of admission to the emergency room after the patient was felt walking lost his balance and fell on his left side. Patient gives no past medical history. According to the patient he's never seen a doctor in his life. He states he's active walks 2-3 miles a day. Patient presented to the emergency room with left hip pain. X-ray showed a displaced femoral neck fracture. It was noted that the patient's blood pressure was elevated. Patient was seen by orthopedic service. Patient did undergo a left hip hemiarthroplasty done on the for the left displaced femoral neck fracture. It's noted the patient has no health insurance sales agent did discuss with the patient the discharge plan. tax manager cpa was going to discuss with the son that the patient could go home would need to follow-up in the outpatient setting with orthopedic service it was noted the patient was started on lisinopril 10 mg daily. Patient was felt to be hemodynamically stable and appropriate proceed with the discharge Impression discharge diagnosis Fall from a standing position resulting in left hip pain due to a left displaced femoral neck fracture New-onset hypertension Postop January 07 left hip hemiarthroplasty due to a left displaced femoral neck fracture CAT scan of the chest mild aneurysm of the ascending aorta measuring 4 cm no evidence of acute lung disease The above dictated assessment and findings were discussed with dr reji Phan and the plan of care have been dictated as directed. Lila Robert nurse practitioner acting as a scribe for dr mendoza []. Patient Condition at Discharge: Serious Plan - Discharge Summary New Discharge Prescriptions: Docusate [Colace] 100 mg PO BID #60 capsule Ergocalciferol [Vitamin D2 (DRISDOL)] 50,000 unit PO Q72H #10 cap HYDROcodone/APAP 7.5-325MG [[place] 7.5-325] 1 - 2 tab PO Q6HR PRN #60 tab PRN Reason: Pain Metoprolol Tartrate [Lopressor] 50 mg PO BID #60 tab Warfarin Sodium [Coumadin] 2.5 mg PO DAILY #30 tablet Discharge Medication List Acetaminophen Tab [Tylenol] 650 mg PO Q4HR PRN #0 tab 01/10/17 [Rx] Docusate [Colace] 100 mg PO BID #60 capsule 01/10/17 [Rx] Ergocalciferol [Vitamin D2 (DRISDOL)] 50,000 unit PO Q72H #10 cap 01/10/17 [Rx] HYDROcodone/APAP 7.5-325MG [[place] 7.5-325] 1 - 2 tab PO Q6HR PRN #60 tab [Rx] Magnesium Hydroxide [Milk of Magnesia Concentrate] 2,400 mg PO DAILY PRN #0 ml 01/10/17 [Rx] Metoprolol Tartrate [Lopressor] 50 mg PO BID #60 tab 01/10/17 [Rx] Multivitamins, Thera [Multivitamin] 1 each PO DAILY@1200 tab 01/10/17 [Rx] Ondansetron [Zofran] 4 mg IVP Q6HR PRN #0 vial 01/10/17 [Rx] Warfarin Sodium [Coumadin] 2.5 mg PO DAILY #30 tablet 01/10/17 [Rx] Follow up Appointment(s)/Referral(s): None,Stated [Primary Care Provider] - 1-2 days Raji Stauffer MD [Medical Doctor] - 2 Weeks Jagdish Mendoza MD [STAFF PHYSICIAN] - 1 Week Ambulatory/Diagnostic Orders: Prothrombin Time INR [LAB.AMB] Time Frame: 01/14/17, Location: Determined By Patient Activity/Diet/Wound Care/Special Instructions: Orthopaedic Discharge Instructions: 1. Weight bearing as tolerated on your left leg using a walker 2. Posterior hip precautions x 6 weeks after surgery 3. You can get your incision wet in the shower, but do not soak your wound - no baths, hot tubs etc. After getting wet in the shower, pat dry and keep covered with band aid or gauze. 4. Lovenox 40 mg daily x 4 weeks 5. Calcium carbonate 500 mg three times a day, vitamin D3 2000 units daily, and vitamin D2 50,000 units every three days x 3 months 6. Follow-up in Dr. Stauffer's office 2 weeks after your discharge Discharge Disposition: HOME SELF-CARE
== END 2017-01-10 18:21 | disposition home or self-care (01) | DRG 470 ==
LOC: EC 09:37 → 3SUR 12:21
PROVIDERS: ADMIT Family Medicine; ATTEND Family Medicine
PROC: 0SRS01Z Replacement of Left Hip Joint, Femoral Surface with Metal Synthetic Substitute, Open Approach (ICD-10-PCS; principal; 2017-01-07 12:30)
DX: S72.012A Unspecified intracapsular fracture of left femur, initial encounter for closed fracture (principal); I71.2 Thoracic aortic aneurysm, without rupture; I10 Essential (primary) hypertension; N28.9 Disorder of kidney and ureter, unspecified; F17.220 Nicotine dependence, chewing tobacco, uncomplicated; W00.0XXA Fall on same level due to ice and snow, initial encounter; Y92.007 Garden or yard of unspecified non-institutional (private) residence as the place of occurrence of the external cause
CPT/HCPCS: 36415; 71010; 71250; 73501; 73521; 80048; 80053; 81001; 82306; 82550; 82553; 83036; 83735; 84484; 85025; 85610; 85730; 87086; 88305; 88311; 93005; 96361; 96374; 99291

== ENCOUNTER 2017-03-14 11:37 | Emergency (ER) | payer OTHER ==
[2017-03-14] MEDS ORDERED: MECLIZINE 12.5 MG TAB PO STA (11:56)
[2017-03-14] MEDS ORDERED: SODIUM CHLORIDE 0.9% 1,000 ML IV STA (11:56)
--- NOTE | 2017-03-14 11:58 | ED ---
General Adult HPI - General Chief complaint: Dizziness Stated complaint: Dizziness Time Seen by Provider: 03/14/17 11:44 Source: patient, RN notes reviewed Mode of arrival: EMS Limitations: no limitations - History of Present Illness Initial comments: Patient is a pleasant 71-year-old male presenting to the emergency department with dizziness. Onset was around 9 or 9:30 this morning. Patient was arty awake. Onset was sudden. Patient felt spinning type sensation. Symptoms worsen with upright position and movement. Symptoms improved with rest and lying back. No history of similar symptoms previously. No confusion. No weakness. - Related Data Home Medications Medication Instructions Recorded Confirmed amLODIPine [Norvasc] 5 mg PO DAILY 03/14/17 03/14/17 Previous Rx's Medication Instructions Recorded Metoprolol Tartrate [Lopressor] 50 mg PO BID #60 tab 01/10/17 Meclizine [Antivert] 25 mg PO TID PRN #12 tab 03/14/17 Allergies Allergy/AdvReac Type Severity Reaction Status Date / Time No Known Allergies Allergy Verified 03/14/17 11:52 Review of Systems ROS Statement: Those systems with pertinent positive or pertinent negative responses have been documented in the HPI. ROS Other: All systems not noted in ROS Statement are negative. Constitutional: Denies: fever Eyes: Denies: eye pain ENT: Denies: ear pain Respiratory: Denies: cough Cardiovascular: Denies: chest pain Endocrine: Denies: fatigue Gastrointestinal: Denies: abdominal pain Genitourinary: Denies: dysuria Musculoskeletal: Denies: back pain Skin: Denies: rash Neurological: Reports: vertigo. Denies: headache, weakness, confusion Past Medical History Past Medical History: No Reported History History of Any Multi-Drug Resistant Organisms: None Reported Past Surgical History: No Surgical Hx Reported Additional Past Anesthesia/Blood Transfusion Reaction / Comment(s): Pt has never had anesthesia Past Psychological History: No Psychological Hx Reported Additional Psychological History / Comment(s): Pt resides alone. He has a spouse of 48 yrs. She comes and visits him regularly. He does not drive. He uses the bus to get places and family makes sure he has what he needs. Pt is a vegetarian. He walks 3-4 miles a day and does yoga on a daily basis. Smoking Status: Never smoker Past Alcohol Use History: None Reported Additional Past Alcohol Use History / Comment(s): Pt chews tobacco. He has chewed since 1966. Past Drug Use History: None Reported - Past Family History Mother Family Medical History: No Reported History Additional Family Medical History / Comment(s): Mother lived to be 96yrs old Father Family Medical History: No Reported History Additional Family Medical History / Comment(s): Father lived to be in his late 70's. General Exam Limitations: no limitations General appearance: alert, in no apparent distress Head exam: Present: atraumatic Eye exam: Present: normal appearance, PERRL, EOMI. Absent: nystagmus ENT exam: Present: normal oropharynx Neck exam: Present: normal inspection Respiratory exam: Present: normal lung sounds bilaterally Cardiovascular Exam: Present: regular rate, normal rhythm GI/Abdominal exam: Present: soft. Absent: tenderness Extremities exam: Present: normal inspection. Absent: pedal edema, calf tenderness Neurological exam: Present: alert, CN II-XII intact. Absent: motor sensory deficit Expanded Speech: Present: fluid speech Cranial nerves: EOM's Intact: Normal Cerebellar function: Finger to Nose: Normal Motor strength exam: RUE: 5, LUE: 5, RLE: 5, LLE: 5 Psychiatric exam: Present: normal affect, normal mood Skin exam: Absent: rash Course Vital Signs 03/14/17 03/14/17 03/14/17 11:40 12:48 12:49 Temperature 98.2 F Pulse Rate 56 L Pulse Rate [ 57 L Sitting Digester Operator] Pulse Rate [ 53 L Supine Digester Operator] Respiratory 17 17 Rate Blood Pressure 193/86 Blood Pressure 169/81 [Sitting] Blood Pressure 179/84 [Standing] Blood Pressure 171/81 [Supine] O2 Sat by Pulse 98 Oximetry EKG Findings - EKG Comments: EKG Findings:: Sinus bradycardia at 53. ID 138. QRS 88. QT 410. QTc 43. Left axis. Minimal voltage criteria for LVH. No acute ST change. Medical Decision Making - Medical Decision Making Patient reevaluated and resting comfortably in bed. Patient did get up and was symptom-free. Patient and family updated on results including blood sugar and need for follow-up. - Lab Data Result diagrams: 03/14/17 11:51 03/14/17 11:51 Lab Results 03/14/17 03/14/17 03/14/17 Range/Units 11:51 11:51 11:51 WBC 6.0 (3.8-10.6) k/uL RBC 5.51 (4.30-5.90) m/uL Hgb 16.3 D (13.0-17.5) gm/dL Hct 48.4 (39.0-53.0) % MCV 87.8 (80.0-100.0) fL MCH 29.6 (25.0-35.0) pg MCHC 33.8 (31.0-37.0) g/dL RDW 12.8 (11.5-15.5) % Plt Count 197 (150-450) k/uL Neutrophils % 62 % Lymphocytes % 27 % Monocytes % 6 % Eosinophils % 3 % Basophils % 1 % Neutrophils # 3.7 (1.3-7.7) k/uL Lymphocytes # 1.6 (1.0-4.8) k/uL Monocytes # 0.3 (0-1.0) k/uL Eosinophils # 0.2 (0-0.7) k/uL Basophils # 0.1 (0-0.2) k/uL Sodium 140 (137-145) mmol/L Potassium 5.4 H (3.5-5.1) mmol/L Chloride 101 (98-107) mmol/L Carbon Dioxide 25 (22-30) mmol/L Anion Gap 14 mmol/L BUN 14 (9-20) mg/dL Creatinine 1.20 (0.66-1.25) mg/dL Est GFR (MDRD) Af Amer >60 (>60 ml/min/1.73 sqM) Est GFR (MDRD) Non-Af 60 (>60 ml/min/1.73 sqM) Glucose 276 H (74-99) mg/dL Calcium 10.2 (8.4-10.2) mg/dL Total Bilirubin 1.1 (0.2-1.3) mg/dL AST 34 (17-59) U/L ALT 18 L (21-72) U/L Alkaline Phosphatase 91 (38-126) U/L Troponin I <0.012 (0.000-0.034) ng/mL Total Protein 8.9 H (6.3-8.2) g/dL Albumin 4.6 (3.5-5.0) g/dL - Radiology Data Radiology results: report reviewed (Computed tomography scan of the brain shows no acute intercranial abnormality.) Disposition Clinical Impression: Vertigo, Hyperglycemia Disposition: ADMITTED IP TO THIS [facility] Condition: Stable Instructions: Dizziness (ED), Hyperglycemia, Non-Diabetic (ED), Vertigo (ED) Additional Instructions: Please follow-up with primary care physician this week. These have primary care physician review chart from today and further evaluate for high blood sugar. Return for increased dizziness, weakness or confusion, worsening symptoms or other concerns. Prescriptions: Meclizine [Antivert] 25 mg PO TID PRN #12 tab PRN Reason: dizziness Referrals: None,Stated [Primary Care Provider] - 1-2 days Yuri Schulte MD [STAFF PHYSICIAN] - 1-2 days Jameson Colon III, MD [STAFF PHYSICIAN] - 1-2 days Pietro Olmedo MD [STAFF PHYSICIAN] - 1-2 days
[2017-03-14 12:15] LABS: Basophils # (A) 0.1 k/uL (0-0.2); Basophils % (A) 1 %; CH 30.3; CHCM 34.6; Eosinophils # (A) 0.2 k/uL (0-0.7); Eosinophils % (A) 3 %; HCT 48.4 % (39.0-53.0); HDW 2.74; Luc % (Auto) 2; Lymphocytes # (A) 1.6 k/uL (1.0-4.8); Lymphocytes % (A) 27 %; MCH 29.6 pg (25.0-35.0); MCHC 33.8 g/dL (31.0-37.0); MCV 87.8 fL (80.0-100.0); Mean Platelet Volume 8.1; Monocytes # (A) 0.3 k/uL (0-1.0); Monocytes % (A) 6 %; Neutrophils # (A) 3.7 k/uL (1.3-7.7); Neutrophils % (A) 62 %; RBC 5.51 m/uL (4.30-5.90); RDW 12.8 % (11.5-15.5); WBC (Perox) 6.02
[2017-03-14 12:21] LABS: ALT 18 U/L (21-72); AST 34 U/L (17-59); Alkaline Phosphatase 91 U/L (38-126); Anion Gap 14 mmol/L; Blood Urea Nitrogen 14 mg/dL (9-20); Calcium 10.2 mg/dL (8.4-10.2); Carbon Dioxide 25 mmol/L (22-30); Chloride 101 mmol/L (98-107); Glucose 276 mg/dL (74-99); Non-African American GFR(MDRD) 60 (>60 ml/min/1.73 sqM); Sodium 140 mmol/L (137-145); Total Bilirubin 1.1 mg/dL (0.2-1.3); Total Protein 8.9 g/dL (6.3-8.2)
[2017-03-14 12:23] LABS: HGB 16.3 gm/dL (13.0-17.5)
[2017-03-14 12:53] LABS: Potassium 5.4 mmol/L (3.5-5.1)
--- NOTE | 2017-03-14 13:01 | CT ---
EXAMINATION TYPE: CT brain wo con DATE OF EXAM: 03/14/2017 12:30 PM COMPARISON: NONE HISTORY: 71-year-old male with vertigo, dizziness today TECHNIQUE: Examination was done in axial plane without intravenous contrast. Coronal and sagittal r econstructions performed. CT DLP: 995.5 mGycm Automated exposure control for dose reduction was used. FINDINGS: There is no evidence of acute intracranial hemorrhage, acute ischemic changes, mass, mass-effect, or extra-axial fluid collection. There is no effacement of cerebral sulci or basal subarachnoid cister ns. There is no hydrocephalus. There is no midline shift. Bradley-white matter distinction is preserv ed. There is mild generalized supratentorial volume loss with moderate patchy periventricular and deep wh ite matter hypodensities. Paranasal sinuses and mastoid air cells are well pneumatized. Patient's gaze appears divergent. IMPRESSION: 1. No acute intracranial abnormality seen. Mild age-related atrophy and moderate changes of chronic s mall vessel ischemic disease. 2. Divergent gaze suggests underlying strabismus. Clinically correlate.
[2017-03-14] MEDS ORDERED: SODIUM CHLORIDE 0.9% 250 ML IV STA (13:41)
[2017-03-14 13:52] VITALS: BP 170/81; PULSE 52; RESP 18; TEMP 97.7
== END 2017-03-14 14:02 | disposition home or self-care (01) ==
LOC: EC 11:37
DX: R42 Dizziness and giddiness (principal); R73.9 Hyperglycemia, unspecified; Z79.899 Other long term (current) drug therapy
CPT/HCPCS: 36415; 70450; 80053; 84484; 85025; 93005; 96360; 99285

== ENCOUNTER 2017-03-20 11:04 | Observation (INO) | payer OTHER ==
[2017-03-20] MEDS ORDERED: SODIUM CHLORIDE 0.9% 1,000 ML IV STA ×3 (11:32→13:52)
--- NOTE | 2017-03-20 11:36 | ED ---
Dizziness HPI - General Chief Complaint: Dizziness Stated Complaint: Dizziness Time Seen by Provider: 03/20/17 11:19 Source: patient, family, RN notes reviewed Mode of arrival: wheelchair Limitations: language barrier - History of Present Illness Initial Comments: This is a 71-year-old male who presents with complaints of the onset of dizziness this morning. He states it occurs when he tries get up to walk he states he feels lower off-balance but when he is lying down he has no symptoms. He denies any recent fevers chills nausea vomiting sweats he does admit not drinking much fluid recently. He was recently seen in the emergency department and found have hypertension and hyperglycemia. He was placed on oral medication. He has not yet been able follow-up with his doctor. He has no complaints of chest pain shortness of breath cough or other symptoms. He denies any focal weakness. MD Complaint: dizziness, lightheadedness - Related Data Home Medications Medication Instructions Recorded Confirmed amLODIPine [Norvasc] 5 mg PO DAILY 03/14/17 03/20/17 Previous Rx's Medication Instructions Recorded Metoprolol Tartrate [Lopressor] 50 mg PO BID #60 tab 01/10/17 Meclizine [Antivert] 25 mg PO TID PRN #12 tab 03/14/17 Allergies Allergy/AdvReac Type Severity Reaction Status Date / Time No Known Allergies Allergy Verified 03/20/17 11:57 Review of Systems ROS Statement: Those systems with pertinent positive or pertinent negative responses have been documented in the HPI. ROS Other: All systems not noted in ROS Statement are negative. Past Medical History Past Medical History: No Reported History History of Any Multi-Drug Resistant Organisms: None Reported Past Surgical History: No Surgical Hx Reported Additional Past Anesthesia/Blood Transfusion Reaction / Comment(s): Pt has never had anesthesia Past Psychological History: No Psychological Hx Reported Additional Psychological History / Comment(s): Pt resides alone. He has a spouse of 48 yrs. She comes and visits him regularly. He does not drive. He uses the bus to get places and family makes sure he has what he needs. Pt is a vegetarian. He walks 3-4 miles a day and does yoga on a daily basis. Smoking Status: Never smoker Past Alcohol Use History: None Reported Additional Past Alcohol Use History / Comment(s): Pt chews tobacco. He has chewed since 1966. Past Drug Use History: None Reported - Past Family History Mother Family Medical History: No Reported History Additional Family Medical History / Comment(s): Mother lived to be 96yrs old Father Family Medical History: No Reported History Additional Family Medical History / Comment(s): Father lived to be in his late 70's. General Exam - General Exam Comments Initial Comments: This is a well-developed well-nourished awake alert oriented times 3 male Limitations: language barrier ENT exam: Present: mucous membranes dry Course Vital Signs 03/20/17 03/20/17 03/20/17 11:09 12:25 14:25 Temperature 97.5 F L 97.7 F Pulse Rate 59 L 55 L 50 L Respiratory 20 18 18 Rate Blood Pressure 187/84 143/73 183/84 O2 Sat by Pulse 99 96 97 Oximetry 03/20/17 16:11 Temperature 97.6 F Pulse Rate 62 Respiratory 20 Rate Blood Pressure 167/81 O2 Sat by Pulse 97 Oximetry - Reevaluation(s) Reevaluation #1: 03/20/17 13:58 The patient is still having episodes of dizziness with attempts to ambulate. He 'll receive another fluid bolus as well as some Antivert. Reevaluation #2: 03/20/17 15:43 Patient continues to be dizzy in spite of IV fluids and Antivert. Did try and 2 occasions to get up and walk he still profoundly dizzy with any type of vertical positioning. The CAT scan has been ordered. He has no neuro deficits however. EKG Findings - EKG Results: EKG: interpreted by ERMD, sinus rhythm (Sinus bradycardia with a rate of 56. Interval 154 QRS duration 104 daily since QTC of 396/382 minimal voltage criteria for LVH she does have evidence of artifact.) Medical Decision Making - Medical Decision Making The patient continues be profoundly dizzy with any upright positioning. He does maintain his blood pressure and pulse rate. I did discuss the case with the family they've requested Dr. Schulte who is agreed to admit the patient. Neurology will be consulted. - Lab Data Result diagrams: 03/20/17 11:40 03/20/17 11:40 Lab Results 03/20/17 03/20/17 03/20/17 Range/Units 11:40 11:40 11:40 WBC 6.5 (3.8-10.6) k/uL RBC 5.42 (4.30-5.90) m/uL Hgb 16.0 (13.0-17.5) gm/dL Hct 46.7 (39.0-53.0) % MCV 86.1 (80.0-100.0) fL MCH 29.5 (25.0-35.0) pg MCHC 34.3 (31.0-37.0) g/dL RDW 12.8 (11.5-15.5) % Plt Count 195 (150-450) k/uL Neutrophils % 61 % Lymphocytes % 30 % Monocytes % 5 % Eosinophils % 2 % Basophils % 1 % Neutrophils # 3.9 (1.3-7.7) k/uL Lymphocytes # 1.9 (1.0-4.8) k/uL Monocytes # 0.3 (0-1.0) k/uL Eosinophils # 0.1 (0-0.7) k/uL Basophils # 0.1 (0-0.2) k/uL Sodium 139 (137-145) mmol/L Potassium 4.8 (3.5-5.1) mmol/L Chloride 104 (98-107) mmol/L Carbon Dioxide 25 (22-30) mmol/L Anion Gap 10 mmol/L BUN 20 (9-20) mg/dL Creatinine 1.19 (0.66-1.25) mg/dL Est GFR (MDRD) Af Amer >60 (>60 ml/min/1.73 sqM) Est GFR (MDRD) Non-Af >60 (>60 ml/min/1.73 sqM) Glucose 183 H (74-99) mg/dL Calcium 10.1 (8.4-10.2) mg/dL Magnesium 2.2 (1.6-2.3) mg/dL Total Bilirubin 1.2 (0.2-1.3) mg/dL AST 26 (17-59) U/L ALT 26 (21-72) U/L Alkaline Phosphatase 82 (38-126) U/L Total Creatine Kinase 81 (55-170) U/L CK-MB (CK-2) 0.8 (0.0-2.4) ng/mL CK-MB (CK-2) Rel Index 1.0 Total Protein 8.4 H (6.3-8.2) g/dL Albumin 4.4 (3.5-5.0) g/dL - Radiology Data Radiology results: report reviewed (I did review the imaging and reports no acute findings.), image reviewed Disposition Clinical Impression: Vertigo, Dizziness, nonspecific Disposition: ADMITTED IP TO THIS HOSP Condition: Stable
[2017-03-20 11:51] LABS: Basophils # (A) 0.1 k/uL (0-0.2); Basophils % (A) 1 %; CH 29.9; CHCM 34.8; Eosinophils # (A) 0.1 k/uL (0-0.7); Eosinophils % (A) 2 %; HCT 46.7 % (39.0-53.0); HDW 2.63; Luc # (Auto) 0.11; Luc % (Auto) 2; Lymphocytes # (A) 1.9 k/uL (1.0-4.8); Lymphocytes % (A) 30 %; MCH 29.5 pg (25.0-35.0); MCHC 34.3 g/dL (31.0-37.0); MCV 86.1 fL (80.0-100.0); Mean Platelet Volume 7.9; Monocytes # (A) 0.3 k/uL (0-1.0); Monocytes % (A) 5 %; Neutrophils # (A) 3.9 k/uL (1.3-7.7); Neutrophils % (A) 61 %; RBC 5.42 m/uL (4.30-5.90); RDW 12.8 % (11.5-15.5); WBC 6.5 k/uL (3.8-10.6); WBC (Perox) 6.39
--- NOTE | 2017-03-20 12:03 | XR ---
EXAMINATION TYPE: XR chest 2V DATE OF EXAM: 03/20/2017 11:58 AM COMPARISON: NONE INDICATION: Dizziness TECHNIQUE: Single frontal view of the chest is obtained. FINDINGS: The heart size is upper limits of normal. The pulmonary vasculature is normal. The lungs are clear. IMPRESSION: 1. No acute pulmonary process.
[2017-03-20 12:06] LABS: ALT 26 U/L (21-72); AST 26 U/L (17-59); Alkaline Phosphatase 82 U/L (38-126); Anion Gap 10 mmol/L; Blood Urea Nitrogen 20 mg/dL (9-20); Calcium 10.1 mg/dL (8.4-10.2); Carbon Dioxide 25 mmol/L (22-30); Chloride 104 mmol/L (98-107); Glucose 183 mg/dL (74-99); Magnesium 2.2 mg/dL (1.6-2.3); Non-African American GFR(MDRD) >60 (>60 ml/min/1.73 sqM); Potassium 4.8 mmol/L (3.5-5.1); Sodium 139 mmol/L (137-145); Total Bilirubin 1.2 mg/dL (0.2-1.3); Total Protein 8.4 g/dL (6.3-8.2)
[2017-03-20 12:19] LABS: Creatine Kinase MB 0.8 ng/mL (0.0-2.4)
[2017-03-20] MEDS ORDERED: SODIUM CHLORIDE 0.9% 500 ML IV STA (12:33)
[2017-03-20] MEDS ORDERED: MECLIZINE 12.5 MG TAB PO STA (13:52)
--- NOTE | 2017-03-20 16:17 | CT ---
EXAMINATION TYPE: CT brain wo con DATE OF EXAM: 03/20/2017 4:03 PM COMPARISON: NONE HISTORY: Pt states of dizziness. CT DLP: 916.0 mGycm. Automated Exposure Control for Dose Reduction was Utilized. TECHNIQUE: CT scan of the head is performed without contrast. FINDINGS: There is no acute intracranial hemorrhage or midline shift identified. There is diffuse v entricular and sulcal prominence consistent with diffuse age-related cerebral atrophy. There is low- attenuation in the periventricular white matter consistent with chronic small vessel ischemic change. The globes are intact and the visualized sinuses are clear. Old right pontine lacunar injury is n oted. Atherosclerosis is seen of the intracranial vasculature. IMPRESSION: 1. No acute intracranial hemorrhage, mass effect, or midline shift is seen. 2. Old right pontine lacunar injury. 3. 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
[2017-03-20 17:36] LABS: Glucose,Whole Blood 193 mg/dL (75-99)
--- NOTE | 2017-03-20 17:53 | US ---
EXAMINATION TYPE: US carotid duplex BILAT DATE OF EXAM: 03/20/2017 5:10 PM COMPARISON: NONE CLINICAL HISTORY: Stenosis. Dizziness EXAM MEASUREMENTS: RIGHT: Peak Systolic Velocity (PSV) cm/sec ----- Right CCA: 47.9 ----- Right ICA: 398.0 ----- Right ECA: 90.3 ICA/CCA ratio: 8.3 RIGHT: End Diastole cm/sec ----- Right CCA: 8.6 ----- Right ICA: 87.5 ----- Right ECA: 6.3 LEFT: Peak Systolic Velocity (PSV) cm/sec ----- Left CCA: 55.9 ----- Left ICA: 153.5 ----- Left ECA: 108.1 ICA/CCA ratio: 2.7 LEFT: End Diastole cm/sec ----- Left CCA: 10.9 ----- Left ICA: 41.2 ----- Left ECA: 9.5 VERTEBRALS (direction of flow): Right Vertebral: Antegrade Left Vertebral: Antegrade Severe plaque noted right bifurcation. Moderate plaque noted left bifurcation. Increased velocities b ilateral ICA's, greater on the right. Grayscale, color Doppler, spectral Doppler imaging performed of the carotid arteries. IMPRESSION: Hemodynamic significant stenosis of the proximal internal carotid artery on the right co rresponding to approximately greater than 70% diameter reduction by Doppler criteria. This is an zeferino rect measurement of carotid stenosis. Consider carotid CTA for better evaluation. Stenosis is more mo derate within the proximal internal carotid artery in the left but possibly greater than 50% diameter reduction.
[2017-03-20] MEDS: INSULIN LISPRO (humaLOG) 300 UNIT/3 ML VIAL SQ SCH ×2 (18:36→21:38)
[2017-03-20] MEDS: METOPROLOL TARTRATE 50 MG TAB PO SCH (20:44)
[2017-03-20 21:18] LABS: Glucose,Whole Blood 159 mg/dL (75-99)
[2017-03-21 03:07] LABS: Glucose,Whole Blood 191 mg/dL (75-99)
[2017-03-21 07:05] LABS: Glucose,Whole Blood 176 mg/dL (75-99)
[2017-03-21] MEDS: INSULIN LISPRO (humaLOG) 300 UNIT/3 ML VIAL SQ SCH ×4 (07:14→21:26)
[2017-03-21] MEDS: MECLIZINE 25 MG TAB PO PRN ×2 (07:14→16:37)
[2017-03-21] MEDS: METOPROLOL TARTRATE 50 MG TAB PO SCH ×2 (08:40→20:19)
[2017-03-21 09:19] LABS: Hemoglobin A1C 7.7 % (4.2-6.1)
[2017-03-21] MEDS: amLODIPine 5 MG TAB PO SCH (11:20)
--- NOTE | 2017-03-21 11:23 | P.HPIM ---
History of Present Illness H&P Date: 03/21/17 Chief Complaint: Dizziness This is a 71-year-old male patient who is being evaluated and examined today. Patient states that over the last 3 days he has felt off balance when he tries to stand up or walk. Patient has no symptoms when he is lying down. In the emergency room he was seen was found to be hypertensive and hyperglycemic as well as feelings of dizziness and lightheadedness. The patient did receive some fluid boluses as well as some Antivert however that treatment was unsuccessful. He did try to walk on 2 occasions and still had profound dizziness with any type of vertical positioning. He was negative for any orthostatic hypotension. EKG results show sinus rhythm. A CT of the brain was negative for any acute processes. A carotid Doppler was completed and was significant for carotid stenosis, greater on the right of 70% and 50% on the left. Neurology and cardiovascular services have been consult it. Upon examination the patient is resting in bed on room air he has no feelings of vertigo currently well he is laying down, his hypertension has stabilized as well as his blood sugars. Review of Systems 14 point review of systems was completed and is negative other than what's noted in the HPI. Past Medical History Past Medical History: No Reported History, Diabetes Mellitus, Hypertension History of Any Multi-Drug Resistant Organisms: None Reported Past Surgical History: No Surgical Hx Reported Additional Past Anesthesia/Blood Transfusion Reaction / Comment(s): Pt has never had anesthesia Past Psychological History: No Psychological Hx Reported Additional Psychological History / Comment(s): Pt resides alone. He has a spouse of 48 yrs. She comes and visits him regularly. He does not drive. He uses the bus to get places and family makes sure he has what he needs. Pt is a vegetarian. He walks 3-4 miles a day and does yoga on a daily basis. Smoking Status: Never smoker Past Alcohol Use History: None Reported Additional Past Alcohol Use History / Comment(s): Pt chews tobacco. He has chewed since 1966. Past Drug Use History: None Reported - Past Family History Mother Family Medical History: No Reported History Additional Family Medical History / Comment(s): Mother lived to be 96yrs old Father Family Medical History: No Reported History Additional Family Medical History / Comment(s): Father lived to be in his late 70's. Medications and Allergies Home Medications Medication Instructions Recorded Confirmed Type amLODIPine [Norvasc] 5 mg PO DAILY 03/14/17 03/20/17 History Allergies Allergy/AdvReac Type Severity Reaction Status Date / Time No Known Allergies Allergy Verified 03/20/17 11:57 Physical Exam Vitals: Vital Signs Temp Pulse Pulse Resp BP BP BP 03/21/17 08:39 98.2 F 57 L 20 127/71 03/21/17 04:00 97.1 F L 56 L 18 156/72 03/21/17 00:00 97.0 F L 54 L 18 136/65 03/20/17 20:00 97.7 F 56 L 18 137/71 03/20/17 17:12 97.7 F 60 20 174/74 03/20/17 17:01 98 F 66 18 197/89 Pulse Ox 03/21/17 08:39 98 03/21/17 04:00 98 03/21/17 00:00 98 03/20/17 20:00 97 03/20/17 17:12 96 03/20/17 17:01 92 L Intake and Output 03/20/17 03/21/17 03/21/17 22:59 06:59 14:59 Intake Total 120 375 100 Output Total 300 1 Balance -180 374 100 Intake: IV 375 Sodium Chloride 0.9% 1, 375 000 ml @ 75 mls/hr IV . [id number] STA Rx#:[id number] Oral 120 100 Output: Urine 300 1 Other: Voiding Method Toilet # Voids 1 # Bowel Movements 1 Weight 63.5 kg 65 kg GENERAL EXAM: Alert, active, comfortable in no apparent distress. HEAD: Normocephalic. EYES: Normal reaction of pupils, equal size. NOSE: Clear with pink turbinates. THROAT: No erythema or exudates. NECK: No masses, no JVD. CHEST: No chest wall deformity. LUNGS: Equal air entry with no crackles, wheeze, rhonchi or dullness. CVS: S1 and S2 normal with no audible mumurs, regular rhythm. ABDOMEN: No hepatosplenomegaly, normal bowel sounds, no guarding or rigidity. EXTREMITIES: No edema noted, pedal pulses palpable. SKIN: No rashes CENTRAL NERVOUS SYSTEM: No focal deficits, tone is normal in all 4 extremities. Results CBC & Chem 7: 03/20/17 11:40 03/20/17 11:40 Labs: Abnormal Lab Results - Last 24 Hours (Table) 03/20/17 03/20/17 03/21/17 Range/Units 17:33 21:15 02:52 POC Glucose (mg/dL) 193 H 159 H 191 H (75-99) mg/dL 03/21/17 Range/Units 06:47 POC Glucose (mg/dL) 176 H (75-99) mg/dL Chest x-ray: report reviewed Thrombosis Risk Factor Assmnt - DVT/VTE Prophylaxis DVT/VTE Prophylaxis: Mechanical Prophylaxis ordered - Choose All That Apply Any of the Below Risk Factors Present?: No Assessment and Plan Plan: Assessment Dizziness and vertigo Bilateral carotid stenosis greater on the right than the left Hypertension Type 2 diabetes, uncontrolled Recent left hip arthroplasty Plan Occasions have been reviewed and will be continued. Neurology and cardiovascular surgical services are on insult. DVT and GI prophylaxis. Diabetes education will be put on consult as well. We will continue to monitor labs/results and adjust treatment as necessary. Appreciate input from consulting providers. I performed an examination of the patient and discussed their management with the nurse practitioner. I have reviewed the nurse practitioner's note and agree with the documented findings and plan of care.
--- NOTE | 2017-03-21 11:25 | P.GSCN ---
History of Present Illness History of present illness: 71-year-old gentleman, patient came to the emergency room with history of dizziness, history of loss of balance, when he is laying down he feels comfortable no dizziness patient has no history of TIA or embolus previous on arrival to the emergency room patient has had hypertension and hyper glycemia which was treated with medically Surgical history no known surgery in the past no recent history of chest pain melena jaundice or liver or pancreatic disease On examination neck is supple no bruit appreciated Chest is clear auscultation first and second sound normal Abdomen soft nontender vascular examination femorals are palpable Central nervous system oriented time and place normal motor function up lower extremity Ultrasound showed of the carotid right side 70% left side 50-60% computed tomography scan of the head showed no hemorrhage there is old lacunar infarct Impression is right carotid 70% stenosis stenosis history of vertigo and dizziness rule out Mnire's disease we will discuss with internal medicine for further management and follow with you thank you Past Medical History Past Medical History: No Reported History, Diabetes Mellitus, Hypertension History of Any Multi-Drug Resistant Organisms: None Reported Past Surgical History: No Surgical Hx Reported Additional Past Anesthesia/Blood Transfusion Reaction / Comm: Pt has never had anesthesia Past Psychological History: No Psychological Hx Reported Additional Psychological History / Comment(s): Pt resides alone. He has a spouse of 48 yrs. She comes and visits him regularly. He does not drive. He uses the bus to get places and family makes sure he has what he needs. Pt is a vegetarian. He walks 3-4 miles a day and does yoga on a daily basis. Smoking Status: Never smoker Past Alcohol Use History: None Reported Additional Past Alcohol Use History / Comment(s): Pt chews tobacco. He has chewed since 1966. Past Drug Use History: None Reported - Past Family History Mother Family Medical History: No Reported History Additional Family Medical History / Comment(s): Mother lived to be 96yrs old Father Family Medical History: No Reported History Additional Family Medical History / Comment(s): Father lived to be in his late 70's. Medications and Allergies Home Medications Medication Instructions Recorded Confirmed Type amLODIPine [Norvasc] 5 mg PO DAILY 03/14/17 03/20/17 History Allergies Allergy/AdvReac Type Severity Reaction Status Date / Time No Known Allergies Allergy Verified 03/20/17 11:57 Surgical - Exam Vital Signs Temp Pulse Resp BP Pulse Ox 97.5 F L 59 L 20 187/84 99 03/20/17 11:09 03/20/17 11:09 03/20/17 11:09 03/20/17 11:09 03/20/17 11:09 Results - Labs 03/20/17 11:40 03/20/17 11:40 Abnormal Lab Results - Last 24 Hours (Table) 03/20/17 03/20/17 03/21/17 Range/Units 17:33 21:15 02:52 POC Glucose (mg/dL) 193 H 159 H 191 H (75-99) mg/dL 03/21/17 Range/Units 06:47 POC Glucose (mg/dL) 176 H (75-99) mg/dL
[2017-03-21 11:43] LABS: Glucose,Whole Blood 134 mg/dL (75-99)
[2017-03-21] MEDS: PANTOPRAZOLE 40 MG TABLET PO SCH (12:04)
[2017-03-21 16:51] LABS: Glucose,Whole Blood 200 mg/dL (75-99)
--- NOTE | 2017-03-21 20:37 | P.CNNES ---
History of Present Illness Consult date: 03/20/17 Requesting physician: Tiago Hernandez Reason for Consult: Dizziness Chief complaint: Dizziness History of Present Illness: Neurology is being requested a consultaon a 71-year-old male who presents with complaint of new onset dizziness this morning. He states it occurs when he tries to get up to walk and ambulate. He states that he feels off balance when he is lying down he has no symptoms. Denies any recent fevers, chills, nausea, vomiting, sweats. He does admit to not drinking much fluid over the last several days. In the recent past he was seen in the ED for hypertension and hyperglycemia. He is placed on oral medications. Patient is not followed up with primary care provider since that incident. He has no complaints of chest pain, shortness of breath, cough or other symptoms. Denies any focal weakness. patient also denies vertigo-like symptoms prior to the last 1-[address] of the brain noted no acute intracranial hemorrhage, mass effect or midline shift. Old right pontine lacunar injury. 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 Carotid Doppler study noted greater than 70% diameter reduction in the right internal carotid and greater than 50% reduction in the left. It is noted the vascular surgery is already been on consult and seen the patient. On contact, patient is supine in bed, resting comfortably alert and oriented 3 and in no acute distress. Patient states that his blood pressure has been inconsistent over the last month and an unknown provider has been adjusting his blood pressure medication. He states he does have incidents of similar occurrence that were closely related to the medication changes that he also has other incidents which are not doing the same timeframe. Review of Systems All systems not noted in HPI or negative Past Medical History Past Medical History: No Reported History, Diabetes Mellitus, Hypertension History of Any Multi-Drug Resistant Organisms: None Reported Past Surgical History: No Surgical Hx Reported Additional Past Anesthesia/Blood Transfusion Reaction / Comment(s): Pt has never had anesthesia Past Psychological History: No Psychological Hx Reported Additional Psychological History / Comment(s): Pt resides alone. He has a spouse of 48 yrs. She comes and visits him regularly. He does not drive. He uses the bus to get places and family makes sure he has what he needs. Pt is a vegetarian. He walks 3-4 miles a day and does yoga on a daily basis. Smoking Status: Never smoker Past Alcohol Use History: None Reported Additional Past Alcohol Use History / Comment(s): Pt chews tobacco. He has chewed since 1966. Past Drug Use History: None Reported - Past Family History Mother Family Medical History: No Reported History Additional Family Medical History / Comment(s): Mother lived to be 96yrs old Father Family Medical History: No Reported History Additional Family Medical History / Comment(s): Father lived to be in his late 70's. Medications and Allergies Home Medications Medication Instructions Recorded Confirmed Type amLODIPine [Norvasc] 5 mg PO DAILY 03/14/17 03/20/17 History Allergies Allergy/AdvReac Type Severity Reaction Status Date / Time No Known Allergies Allergy Verified 03/20/17 11:57 Physical Examination - Vital Signs Vital Signs: Vital Signs Temp Pulse Resp BP BP Pulse Ox 03/21/17 16:00 98.5 F 56 L 16 147/72 97 03/21/17 11:46 97.9 F 50 L 16 149/76 100 03/21/17 08:39 98.2 F 57 L 20 127/71 98 03/21/17 04:00 97.1 F L 56 L 18 156/72 98 03/21/17 00:00 97.0 F L 54 L 18 136/65 98 Intake and Output 03/21/17 03/21/17 03/21/17 06:59 14:59 22:59 Intake Total 375 660 Output Total 1 200 550 Balance 374 460 -550 Intake: IV 375 Sodium Chloride 0.9% 1, 375 000 ml @ 75 mls/hr IV . [id number] STA Rx#:[id number] Oral 660 Output: Urine 1 200 550 Other: Voiding Method Toilet Toilet Urinal # Voids 1 # Bowel Movements 1 Weight 65 kg Constitutional: AOx3, cooperative HEENT: NC/AT, no facial asymmetry is seen. Throat: Supple, no masses Respiratory: No increased work of breathing Cardiac: Regular rate and Rhythm GI: non tender, non distended Musculoskeletal: Manager Internal strengths are equal bilaterally 5/5, Lower extremity strengths are equal bilaterally at 5/5. Neurological: CN II-XII in tact, patient was AOx3, speech and language are normal, no unilateralizing weakness, no seizure activity note on physical exam. Sensation was normal. Integementary: no rash, no erythema Psychiatric: mood and affect appropriate Results - Laboratory Findings CBC and BMP: 03/20/17 11:40 03/20/17 11:40 Abnormal Lab Findings: Abnormal Labs 03/20/17 03/20/17 03/21/17 17:33 21:15 02:52 POC Glucose (mg/dL) 193 H 159 H 191 H 03/21/17 03/21/17 03/21/17 06:47 11:41 16:45 POC Glucose (mg/dL) 176 H 134 H 200 H Assessment and Plan (1) Dizziness, nonspecific Status: Acute Plan: Patient's symptoms, physical exam and diagnostic workup at this point did not suggest a neurological etiology for the patient's complaints. However, I'm going order an MRI of the brain without contrast for further investigation of possible Mnire's disease as well as for verification there has not been a cerebellar CVA or schwannoma. Recommend consult ear nose and throat. Patient was placed on 81 mg aspirin for anticoagulant therapy for the old CVA noted on CT of the brain. Continue neuro checks as ordered. Carotid Doppler has already been performed with results available. EEG is also ordered. Status: Neurology will continue to follow provide further updates as needed or warranted. I discussed the patient's pertinent medical information with Dr. Skinner. He agrees with the plan of care as implemented.
[2017-03-21 20:38] LABS: Glucose,Whole Blood 195 mg/dL (75-99)
[2017-03-22 06:43] LABS: Glucose,Whole Blood 134 mg/dL (75-99)
[2017-03-22 07:29] LABS: INR 1.2 (<1.1); Prothrombin Time 11.7 sec (9.0-12.0)
[2017-03-22 07:33] LABS: Basophils # (A) 0.1 k/uL (0-0.2); Basophils % (A) 1 %; CH 29.8; CHCM 33.7; Eosinophils # (A) 0.2 k/uL (0-0.7); Eosinophils % (A) 3 %; HCT 46.3 % (39.0-53.0); HDW 2.62; HGB 15.1 gm/dL (13.0-17.5); Luc # (Auto) 0.13; Luc % (Auto) 2; Lymphocytes # (A) 2.2 k/uL (1.0-4.8); Lymphocytes % (A) 31 %; MCH 28.9 pg (25.0-35.0); MCHC 32.6 g/dL (31.0-37.0); MCV 88.7 fL (80.0-100.0); Mean Platelet Volume 7.8; Monocytes # (A) 0.4 k/uL (0-1.0); Monocytes % (A) 6 %; Neutrophils # (A) 4.2 k/uL (1.3-7.7); Neutrophils % (A) 58 %; RBC 5.22 m/uL (4.30-5.90); RDW 12.6 % (11.5-15.5); WBC 7.2 k/uL (3.8-10.6); WBC (Perox) 7.39
[2017-03-22 07:45] LABS: ALT 22 U/L (21-72); AST 19 U/L (17-59); Alkaline Phosphatase 78 U/L (38-126); Anion Gap 8 mmol/L; Blood Urea Nitrogen 13 mg/dL (9-20); Calcium 9.9 mg/dL (8.4-10.2); Carbon Dioxide 28 mmol/L (22-30); Chloride 105 mmol/L (98-107); Glucose 139 mg/dL (74-99); Non-African American GFR(MDRD) 54 (>60 ml/min/1.73 sqM); Sodium 141 mmol/L (137-145); Total Bilirubin 0.9 mg/dL (0.2-1.3); Total Protein 7.8 g/dL (6.3-8.2)
[2017-03-22] MEDS: INSULIN LISPRO (humaLOG) 300 UNIT/3 ML VIAL SQ SCH ×4 (09:37→21:45)
[2017-03-22] MEDS: ASPIRIN 81 MG CHEW PO SCH (10:00)
[2017-03-22] MEDS: PANTOPRAZOLE 40 MG TABLET PO SCH (10:00)
[2017-03-22] MEDS: amLODIPine 5 MG TAB PO SCH (10:00)
[2017-03-22] MEDS: METOPROLOL TARTRATE 50 MG TAB PO SCH ×2 (10:01→20:01)
--- NOTE | 2017-03-22 10:31 | MR ---
EXAMINATION TYPE: MR brain wo con DATE OF EXAM: 03/22/2017 9:53 AM COMPARISON: NONE HISTORY: Dizziness T1-weighted sagittal, T2, FLAIR, and diffusion axial, and T2 coronal coronal views of the brain are s ubmitted. There is no evidence of acute ischemia. The ventricles, basal cisterns, and sulci overlying the conv exities are consistent with [id number] degenerative change. No mass effect. White matter: There is diffuse and focal areas of abnormal signal scattered throughout the white nicho er bilaterally estimated at 80 focal lesions. Largest measures less than 1 cm. No callosal lesions. N o lesions perpendicular to the ventricular system. Craniocervical junction maintained. Sella turcica has a normal appearance. Changes of mild chronic si nusitis. No cerebellopontine angle mass. IMPRESSION: 1. No acute intracranial process. 2. Degenerative and nonspecific white matter changes. Differential diagnosis would include remote taisha rovascular ischemia. Demyelinating process not entirely excluded.
[2017-03-22 12:19] LABS: Glucose,Whole Blood 129 mg/dL (75-99)
--- NOTE | 2017-03-22 13:58 | P.PN ---
Progress Note - Text 71-year-old gentleman history of dizziness and were tied go patient had a stroke workup including CT of the brain no intracranial hemorrhage noted. Ultrasound showed ri 70% stenosis stenosis no history of TIA or embolus feebleness no history of drop attack patient came with high blood pressure and blood sugar which has been under control patient was seen by neurology and had had a ordered MRI of the brain according the patient his dizziness is improving we will wait for the MRI report follow with you thank you
--- NOTE | 2017-03-22 16:07 | P.PN ---
Subjective This is a 71-year-old male patient who is being evaluated and examined today. Patient states that over the last 3 days he has felt off balance when he tries to stand up or walk. Patient has no symptoms when he is lying down. In the emergency room he was seen was found to be hypertensive and hyperglycemic as well as feelings of dizziness and lightheadedness. The patient did receive some fluid boluses as well as some Antivert however that treatment was unsuccessful. He did try to walk on 2 occasions and still had profound dizziness with any type of vertical positioning. He was negative for any orthostatic hypotension. EKG results show sinus rhythm. A CT of the brain was negative for any acute processes. A carotid Doppler was completed and was significant for carotid stenosis, greater on the right of 70% and 50% on the left. Neurology and cardiovascular services have been consult it. Upon examination the patient is resting in bed on room air he has no feelings of vertigo currently well he is laying down, his hypertension has stabilized as well as his blood sugars. The patient reports that he is less dizzy today. Neuro and vascular services continue to follow patient as well. Objective - Vital Signs Vital signs: Vital Signs Temp 98.1 F 03/22/17 11:39 Pulse 54 L 03/22/17 11:39 Resp 16 03/22/17 11:39 BP 142/75 03/22/17 11:39 Pulse Ox 97 03/22/17 11:39 Intake & Output 03/21/17 03/22/17 03/22/17 18:59 06:59 18:59 Intake Total 660 472 Output Total 750 950 Balance -90 -950 472 Weight 65 kg Intake: Oral 660 472 Output: Urine 750 950 Other: Voiding Method Toilet Toilet Toilet Urinal Urinal Urinal # Voids 1 # Bowel Movements 1 - Exam GENERAL EXAM: Alert, active, comfortable in no apparent distress. HEAD: Normocephalic. EYES: Normal reaction of pupils, equal size. NOSE: Clear with pink turbinates. THROAT: No erythema or exudates. NECK: No masses, no JVD. CHEST: No chest wall deformity. LUNGS: Equal air entry with no crackles, wheeze, rhonchi or dullness. CVS: S1 and S2 normal with no audible mumurs, regular rhythm. ABDOMEN: No hepatosplenomegaly, normal bowel sounds, no guarding or rigidity. EXTREMITIES: No edema noted, pedal pulses palpable. SKIN: No rashes CENTRAL NERVOUS SYSTEM: No focal deficits, tone is normal in all 4 extremities. - Labs CBC & Chem 7: 03/22/17 06:48 03/22/17 06:48 Labs: Abnormal Lab Results - Last 24 Hours (Table) 03/21/17 03/21/17 03/22/17 Range/Units 16:45 20:36 06:41 Creatinine (0.66-1.25) mg/dL Glucose (74-99) mg/dL POC Glucose (mg/dL) 200 H 195 H 134 H (75-99) mg/dL 03/22/17 03/22/17 Range/Units 06:48 12:17 Creatinine 1.31 H (0.66-1.25) mg/dL Glucose 139 H (74-99) mg/dL POC Glucose (mg/dL) 129 H (75-99) mg/dL Assessment and Plan Plan: Assessment Dizziness and vertigo Bilateral carotid stenosis greater on the right than the left Hypertension Type 2 diabetes, uncontrolled Recent left hip arthroplasty Plan Occasions have been reviewed and will be continued. Neurology and cardiovascular surgical services are on insult. DVT and GI prophylaxis. Diabetes education will be put on consult as well. Patient had an MRI and EEG today, results pending. We will continue to monitor labs/results and adjust treatment as necessary. Appreciate input from consulting providers. I performed an examination of the patient and discussed their management with the nurse practitioner. I have reviewed the nurse practitioner's note and agree with the documented findings and plan of care.
[2017-03-22 17:22] LABS: Glucose,Whole Blood 141 mg/dL (75-99)
[2017-03-22 20:52] LABS: Glucose,Whole Blood 213 mg/dL (75-99)
[2017-03-23 06:53] LABS: Glucose,Whole Blood 140 mg/dL (75-99)
[2017-03-23 08:00] LABS: Basophils % (A) 1 %; CHCM 35.6; Eosinophils # (A) 0.3 k/uL (0-0.7); Eosinophils % (A) 4 %; HCT 43.3 % (39.0-53.0); HDW 2.78; HGB 15.1 gm/dL (13.0-17.5); Luc # (Auto) 0.16; Luc % (Auto) 2; Lymphocytes # (A) 2.1 k/uL (1.0-4.8); Lymphocytes % (A) 29 %; MCH 29.4 pg (25.0-35.0); MCHC 34.8 g/dL (31.0-37.0); MCV 84.5 fL (80.0-100.0); Mean Platelet Volume 7.7; Monocytes # (A) 0.4 k/uL (0-1.0); Monocytes % (A) 6 %; Neutrophils # (A) 4.2 k/uL (1.3-7.7); Neutrophils % (A) 59 %; RBC 5.13 m/uL (4.30-5.90); RDW 12.2 % (11.5-15.5); WBC 7.1 k/uL (3.8-10.6); WBC (Perox) 7.64
[2017-03-23 08:19] LABS: ALT 22 U/L (21-72); AST 19 U/L (17-59); Alkaline Phosphatase 81 U/L (38-126); Anion Gap 8 mmol/L; Blood Urea Nitrogen 16 mg/dL (9-20); Calcium 9.8 mg/dL (8.4-10.2); Carbon Dioxide 26 mmol/L (22-30); Chloride 103 mmol/L (98-107); Glucose 142 mg/dL (74-99); Non-African American GFR(MDRD) 56 (>60 ml/min/1.73 sqM); Potassium 4.6 mmol/L (3.5-5.1); Sodium 137 mmol/L (137-145); Total Bilirubin 0.9 mg/dL (0.2-1.3); Total Protein 7.6 g/dL (6.3-8.2)
[2017-03-23] MEDS: ASPIRIN 81 MG CHEW PO SCH (08:23)
[2017-03-23] MEDS: METOPROLOL TARTRATE 50 MG TAB PO SCH ×2 (08:23→20:41)
[2017-03-23] MEDS: amLODIPine 5 MG TAB PO SCH (08:23)
[2017-03-23] MEDS: INSULIN LISPRO (humaLOG) 300 UNIT/3 ML VIAL SQ SCH ×4 (08:23→20:42)
[2017-03-23] MEDS: PANTOPRAZOLE 40 MG TABLET PO SCH (08:23)
[2017-03-23 12:01] LABS: Glucose,Whole Blood 185 mg/dL (75-99)
--- NOTE | 2017-03-23 12:17 | PN ---
This is a 71-year-old gentleman who has history of dizzy spells. No history of drop attack. No ( ). Patient had ultrasound which showed right side 70% stenosis. Patient had an MRI. There is no acute intracranial process. There is some degenerative and nonspecific white matter changes and a demyelinating process is not entirely excluded. At this point, patient has asymptomatic right carotid stenosis. Patient has been seen by a neurologist and internal medicine. Patient can be followed up in my office in a months' time.
--- NOTE | 2017-03-23 16:03 | PN ---
DATE OF SERVICE: 03/23/2017 Mr. Lomeli is a 71-year-old male who came into hospital with severe degree of dizziness and vertigo. Neurological service has been following. The patient is being followed by vascular service as well. Patient continued to have symptoms but did improve slightly though on meclizine. Patient has been found to have diabetes as well given that hemoglobin A1c was extremely high. Patient fasting cholesterol is ordered. The patient has difficult time getting out of bed due to dizziness this morning during evaluation. His blood pressure is 116/70, respiratory rate 16, pulse 77, temperature 98, saturation 98% on room air. HEENT: Unremarkable. NECK: Supple. LUNGS: Good air entry bilaterally without significant rales, rhonchi, or rub. HEART: Regular rate and rhythm. S1 and S2 audible. ABDOMEN: Soft. No rebound or rigidity. EXTREMITIES: +1 peripheral pulses. NEUROLOGICAL EXAMINATION: Awake and alert. No focal neurological deficit. MRI of the brain is unremarkable. Labs reviewed. Medications reviewed. IMPRESSION: 1. New onset diabetes. 2. Severe dizziness and vertigo, appears to be peripheral as MRI failed to reveal any acute stroke. 3. Uncontrolled hypertension, hypertensive cardiovascular disease. PLAN AND RECOMMENDATION: Continue current medications. Follow clinical course closely. Monitor the patient for fall precautions. Continue Antivert. ENT consult has been requested. Patient probably will require an antilipid agent. A fasting lipid panel has been ordered. Patient would benefit from oral hypoglycemic agents. Once clinically more stable, will start. Will follow. Patient is not ready for discharge.
[2017-03-23 17:09] LABS: Glucose,Whole Blood 176 mg/dL (75-99)
--- NOTE | 2017-03-23 18:28 | CONS ---
DATE OF CONSULTATION: REASON FOR CONSULTATION: Dizziness, vertigo HISTORY: This is a 71-year-old gentleman who had acute onset of vertigo he states that about 4 days ago. He had difficulty walking when he got out of bed and felt off balance. He did have some spinning-type vertigo initially but it has become more an imbalance. He had no headache, focal neurologic symptoms or recent flu symptoms. In the ER, he was felt to be dehydrated as well as hypertensive and hyperglycemic. Even with hydration he was not still able to be up ambulatory and therefore was admitted for further evaluation. He has had vascular surgery consultation as well as neurology consultation. He had a CT scan of the brain which was unremarkable. MRI showed multiple small lesions likely microvascular ischemia according to radiology report. The patient has been on Antivert throughout his hospitalization and is improved. He states that he feels a little bit off-balance when up walking, but this was intermittent now. He has had no true spinning anymore. No nausea. He has not had symptoms like this before. He has had no hearing changes or hearing loss noted. PAST MEDICAL HISTORY: Positive for hypertension. PAST SURGICAL HISTORY: None. ALLERGIES: No known drug allergies. Medications on admission Norvasc and previous history of Lopressor. SOCIAL HISTORY: He does not smoke or drink alcohol but does chew tobacco. REVIEW OF SYSTEMS: Noncontributory other than as above. PHYSICAL EXAMINATION: This is a well-developed male patient, alert and oriented x3 and in no acute distress. Appears comfortable. HEENT: Head normocephalic and atraumatic. EARS: Bilateral canals are clear. Tympanic membranes unremarkable and mobile. Nose shows no drainage or obstruction. Mouth and throat shows fair dentition with staining of the teeth. No abnormal lesions. Neck is supple without adenopathy or tenderness. NEUROLOGIC: Cranial nerves II through XII were grossly intact. He cannot stand without assistance. No nystagmus. ASSESSMENT: Vertigo. PLAN: Patient could have multiple etiologies for his symptoms. Although Neurology has felt that this was more likely peripheral in nature, certainly the fact that he has at least 80 small lesions on his MRI could certainly still signify that this could be a central event, and then would certainly still have neurology follow this patient acutely. From a peripheral vestibular standpoint, this could signify entities such as labyrinthitis which would require supportive care such as Antivert or possibly scopolamine and otherwise should improve spontaneously over time. Further work-up including audiogram and ENG could be considered especially with persistent symptoms and this will be done as an outpatient generally. Fall precautions reviewed with patient today. If there are questions or concerns regarding this consultation, please feel to contact me.
[2017-03-23 20:16] LABS: Glucose,Whole Blood 165 mg/dL (75-99)
[2017-03-23] MEDS: MECLIZINE 25 MG TAB PO PRN (20:41)
[2017-03-24 07:24] LABS: Glucose,Whole Blood 142 mg/dL (75-99)
[2017-03-24 07:48] LABS: ALT 20 U/L (21-72); AST 21 U/L (17-59); Alkaline Phosphatase 73 U/L (38-126); Anion Gap 9 mmol/L; Blood Urea Nitrogen 15 mg/dL (9-20); Calcium 9.7 mg/dL (8.4-10.2); Carbon Dioxide 27 mmol/L (22-30); Chloride 101 mmol/L (98-107); Cholesterol 171 mg/dL (<200); Glucose 140 mg/dL (74-99); HDL Cholesterol 26 mg/dL (40-60); Non-African American GFR(MDRD) 54 (>60 ml/min/1.73 sqM); Potassium 4.9 mmol/L (3.5-5.1); Sodium 137 mmol/L (137-145); Total Bilirubin 0.6 mg/dL (0.2-1.3); Total Protein 7.4 g/dL (6.3-8.2)
[2017-03-24 08:00] LABS: Triglycerides 520 mg/dL (<150)
[2017-03-24] MEDS: ASPIRIN 81 MG CHEW PO SCH (08:04)
[2017-03-24] MEDS: amLODIPine 5 MG TAB PO SCH (08:05)
[2017-03-24] MEDS: METOPROLOL TARTRATE 50 MG TAB PO SCH ×2 (08:05→20:12)
[2017-03-24] MEDS: INSULIN LISPRO (humaLOG) 300 UNIT/3 ML VIAL SQ SCH ×4 (08:05→20:12)
[2017-03-24] MEDS: PANTOPRAZOLE 40 MG TABLET PO SCH (08:05)
[2017-03-24] MEDS: MECLIZINE 25 MG TAB PO PRN ×2 (08:49→18:36)
[2017-03-24 12:15] LABS: Glucose,Whole Blood 219 mg/dL (75-99)
--- NOTE | 2017-03-24 13:13 | P.PN ---
Subjective This is a 71-year-old male patient who is being evaluated and examined today. Patient states that over the last 3 days he has felt off balance when he tries to stand up or walk. Patient has no symptoms when he is lying down. In the emergency room he was seen was found to be hypertensive and hyperglycemic as well as feelings of dizziness and lightheadedness. The patient did receive some fluid boluses as well as some Antivert however that treatment was unsuccessful. He did try to walk on 2 occasions and still had profound dizziness with any type of vertical positioning. He was negative for any orthostatic hypotension. EKG results show sinus rhythm. A CT of the brain was negative for any acute processes. A carotid Doppler was completed and was significant for carotid stenosis, greater on the right of 70% and 50% on the left. Neurology and cardiovascular services have been consult it. Upon examination the patient is resting in bed on room air he has no feelings of vertigo currently well he is laying down, his hypertension has stabilized as well as his blood sugars. The patient reports that he is less dizzy today. Neuro and vascular services continue to follow patient as well.he was also put on consult Objective - Vital Signs Vital signs: Vital Signs Temp 98.0 F 03/24/17 11:45 Pulse 61 03/24/17 11:45 Resp 18 03/24/17 11:45 BP 137/73 03/24/17 11:45 Pulse Ox 97 03/24/17 11:45 Intake & Output 03/23/17 03/24/17 03/24/17 18:59 06:59 18:59 Intake Total 360 640 Balance 360 640 Intake: Oral 360 640 Other: Voiding Method Toilet Toilet Toilet Urinal Urinal Urinal # Voids 1 1 - Exam GENERAL EXAM: Alert, active, comfortable in no apparent distress. HEAD: Normocephalic. EYES: Normal reaction of pupils, equal size. NOSE: Clear with pink turbinates. THROAT: No erythema or exudates. NECK: No masses, no JVD. CHEST: No chest wall deformity. LUNGS: Equal air entry with no crackles, wheeze, rhonchi or dullness. CVS: S1 and S2 normal with no audible mumurs, regular rhythm. ABDOMEN: No hepatosplenomegaly, normal bowel sounds, no guarding or rigidity. EXTREMITIES: No edema noted, pedal pulses palpable. SKIN: No rashes CENTRAL NERVOUS SYSTEM: No focal deficits, tone is normal in all 4 extremities. - Labs CBC & Chem 7: 03/23/17 07:18 03/24/17 06:45 Labs: Abnormal Lab Results - Last 24 Hours (Table) 03/23/17 03/23/17 03/24/17 Range/Units 17:05 20:04 06:45 Creatinine 1.30 H (0.66-1.25) mg/dL Glucose 140 H (74-99) mg/dL POC Glucose (mg/dL) 176 H 165 H (75-99) mg/dL ALT 20 L (21-72) U/L Triglycerides 520 H (<150) mg/dL HDL Cholesterol 26 L (40-60) mg/dL 03/24/17 03/24/17 Range/Units 07:13 12:14 Creatinine (0.66-1.25) mg/dL Glucose (74-99) mg/dL POC Glucose (mg/dL) 142 H 219 H (75-99) mg/dL ALT (21-72) U/L Triglycerides (<150) mg/dL HDL Cholesterol (40-60) mg/dL Assessment and Plan Plan: Assessment Dizziness and vertigo Bilateral carotid stenosis greater on the right than the left Hypertension Type 2 diabetes, uncontrolled Recent left hip arthroplasty Plan Medications have been reviewed and will be continued. Neurology and cardiovascular surgical services are on consult. DVT and GI prophylaxis. Diabetes education will be put on consult as well. Patient had an MRI and EEG completed. We will start the patient on Glucophage twice a day. Patient could potentially be discharged tomorrow.We will continue to monitor labs/results and adjust treatment as necessary. Appreciate input from consulting providers. I performed an examination of the patient and discussed their management with the nurse practitioner. I have reviewed the nurse practitioner's note and agree with the documented findings and plan of care.
[2017-03-24 14:50] VITALS: BMI 25.4
[2017-03-24 17:10] LABS: Glucose,Whole Blood 212 mg/dL (75-99)
[2017-03-24] MEDS: metFORMIN 500 MG TAB PO SCH (18:36)
[2017-03-24 20:09] LABS: Glucose,Whole Blood 141 mg/dL (75-99)
[2017-03-25 07:30] LABS: Glucose,Whole Blood 153 mg/dL (75-99)
[2017-03-25] MEDS: PANTOPRAZOLE 40 MG TABLET PO SCH (07:53)
[2017-03-25] MEDS: metFORMIN 500 MG TAB PO SCH (07:53)
[2017-03-25] MEDS: INSULIN LISPRO (humaLOG) 300 UNIT/3 ML VIAL SQ SCH ×2 (07:53→12:46)
[2017-03-25] MEDS: amLODIPine 5 MG TAB PO SCH (07:54)
[2017-03-25] MEDS: ASPIRIN 81 MG CHEW PO SCH (07:54)
[2017-03-25] MEDS: METOPROLOL TARTRATE 50 MG TAB PO SCH (07:54)
[2017-03-25 08:31] VITALS: RESP 18
[2017-03-25 11:50] VITALS: BP 161/73; PULSE 58; TEMP 98.4
[2017-03-25 12:22] LABS: Glucose,Whole Blood 214 mg/dL (75-99)
[2017-03-25 17:06] LABS: Glucose,Whole Blood 148 mg/dL (75-99)
--- NOTE | 2017-03-26 10:04 | DS ---
DATE OF ADMISSION: 03/20/2017 DATE OF DISCHARGE: 03/25/2017 DISCHARGE DIAGNOSES: 1. Intractable vertigo. 2. Newly diagnosis of diabetes mellitus. 3. Newly diagnosed dyslipidemia. 4. Peripheral arterial disease with cavitary stenosis. 5. Hypertension, hypertensive cardiovascular disease. 6. History of chronic obstructive pulmonary disease. DISCHARGE MEDICATIONS AND INSTRUCTIONS: 1. Follow up with me in one week. 2. Continue Norvasc 5 mg daily. 3. Metoprolol 50 mg p.o. 2 times a day. 4. Meclizine 25 mg 3 times a day as needed. 5. Metformin 500 mg 2 times a day. 6. Atorvastatin 20 mg daily. 7. Accu-Cheks. 8. Diabetic education has been provided. 9. Also aspirin 81 mg daily. Consultation obtained from Urology, Vascular Surgery and ENT. Work-up and evaluation including EKG performed in the emergency department revealed sinus bradycardia, LVH, otherwise, fairly unremarkable. The CT scan of the head performed 03/20 and revealed no acute intracranial hemorrhage or mass effect is seen. 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 The carotid duplex study performed 03/20/2017 revealed hemodynamically significant stenosis of internal carotid artery on the right side about 70%; on the left side was about 50%. The brain MRI was performed which failed to reveal any acute infarct. Neurology recommended an ENT consult and aspirin. ENT consultation has evaluated this patient as well. They recommended suspicion of labyrinthitis and recommendation of Antivert. Further work-up like audiogram and ENG in outpatient setting. The patient significantly improved in terms of her vertigo. Able to get up and move around. Patient now being discharged. The other findings which include new finding of diabetes mellitus with hemoglobin A1c over 8 and elevated cholesterol level.
--- NOTE | 2017-04-06 09:09 | EEG ---
DATE OF SERVICE: 03/22/2017 INDICATIONS FOR EXAMINATION: Dizziness. AGE: 71Y DESCRIPTION OF PROCEDURE: This EEG was performed using a 21 channel digital electroencephalograph, following international 10-20 system. DESCRIPTION OF THE RECORDING: From the beginning of the tracing, with the patient's eyes closed, the background rhythm was mostly consisting of 8 Hz alpha frequency in the posterior occipital leads. No obvious asymmetry was seen. Photic stimulation was performed with a minimal driving response seen. No pathological waves were elicited. Hyperventilation was not performed. Rare movement artifacts are noticed. Later in the tracing, the patient does reach Stage II of sleep and occasional sleep spindles are seen. No epileptiform discharges were seen. His EKG lead showed regular rate and rhythm. INTERPRETATION: This asleep and awake EEG can be considered within normal limits. There was no asymmetry seen. No epileptiform discharges were noticed. The absence of epileptiform discharges does not rule out the diagnosis of epilepsy. Therefore, clinical correlation is recommended.
== END 2017-03-25 18:00 | disposition home or self-care (01) ==
LOC: EC 11:04 → 6SEL 16:40 → 3OBS 03-21 20:32
PROVIDERS: ADMIT Internal Medicine Sleep Medicine; ATTEND Internal Medicine Sleep Medicine
DX: R42 Dizziness and giddiness (principal); I65.23 Occlusion and stenosis of bilateral carotid arteries; E11.65 Type 2 diabetes mellitus with hyperglycemia; I11.9 Hypertensive heart disease without heart failure; E78.5 Hyperlipidemia, unspecified; I73.9 Peripheral vascular disease, unspecified; E78.00 Pure hypercholesterolemia, unspecified; J44.9 Chronic obstructive pulmonary disease, unspecified; Z79.899 Other long term (current) drug therapy; F17.220 Nicotine dependence, chewing tobacco, uncomplicated; Z96.642 Presence of left artificial hip joint; Z86.73 Personal history of transient ischemic attack (TIA), and cerebral infarction without residual deficits
CPT/HCPCS: 96372 ×6; 96360; 96361; 99285; 36415; 95819; 93005; 97161; 97166; 92610; 80061; 80053 ×4; 83036; 82550; 82553; 83735 ×2; 85025 ×3; 85610; 71020; 93880; 70450; 70551; G0378 ×7